=== PATIENT | male | born 1965 | race Hispanic/Latino ===

== ENCOUNTER → 2018-02-01 | Day surgery (SDC) | payer OTHER ==
[2018-01-30 18:10] LABS: BASOPHILS % 0.3 % (0.0-1.0); EOSINOPHILS # (AUTO) 0.1 (0.0-0.4); EOSINOPHILS % 0.8 % (0.0-6.0); HEMATOCRIT 37.5 % (38.2-49.6); HEMOGLOBIN 12.9 g/dL (14.0-18.0); LYMPHOCYTES # (AUTO) 3.2 (1.0-3.2); LYMPHOCYTES % 35.2 % (18.0-39.1); MEAN CORPUSCULAR HEMOGLOBIN 31.3 pg (28-32); MEAN CORPUSCULAR HGB CONC 34.4 g/dL (31-35); MONOCYTES # (AUTO) 0.8 (0.2-0.8); MONOCYTES % 9.2 % (4.4-11.3); NEUTROPHILS # (AUTO) 4.9 (2.1-6.9); NEUTROPHILS % 53.5 % (38.7-80.0); PLATELET COUNT 254 x10e3/uL (140-360); RED BLOOD COUNT 4.12 x10e6/uL (4.3-5.7); RED CELL DISTRIBUTION WIDTH 11.7 % (11.7-14.4)
[2018-01-30 18:34] LABS: ALANINE AMINOTRANSFERASE 27 IU/L (0-55); ALBUMIN 3.3 g/dL (3.5-5.0); ALBUMIN/GLOBULIN RATIO 1.1 (0.8-2.0); ALKALINE PHOSPHATASE 121 IU/L (40-150); ANION GAP 12.2 mmol/L (8-16); BLOOD UREA NITROGEN < 5 mg/dL (7-26); CALCIUM 8.6 mg/dL (8.4-10.2); CARBON DIOXIDE 25 mmol/L (22-29); CHLORIDE 95 mmol/L (98-107); CHOLESTEROL 91 MD/DL (0-199); CREATININE, SERUM 0.98 mg/dL (0.72-1.25); EST GLOMERULAR FILTRATION RATE > 60 ML/MIN (60-); GLUCOSE 281 mg/dL (74-118); HDL CHOLESTEROL 46 MG/DL (40-60); LDL CHOLESTEROL 30 MG/DL (60-130); POTASSIUM 4.2 mmol/L (3.5-5.1); SODIUM 128 mmol/L (136-145); TRIGLYCERIDES 75 MG/DL (0-149)
[2018-01-30 18:37] LABS: BUN/CREATININE RATIO 5 (6-25)
[~2018-02-01] VITALS: Ht 167.6 cm; Wt 64.0 kg
[2018-02-01] VITALS (12 sets, daily range): BP systolic 117–140; BP diastolic 70–90
[~2018-02-01] MED LIST: ASPIRIN81 MG PO; CIALIS20 MG PO; FENTANYL CITRATE/PF 100MCG/2 ML INJ ONE; FOLIC ACID1 MG PO; HEPARIN SOD (PORCINE) 1000 UNIT/ML 30ML ONE; HEPARIN SOD/SOD CHLORIDE 2,000 ML ONE; IOPAMIDOL 370 MG/ML 200 ML INFUS..BTL INJ ONE; LEVEMIR100 UNIT/1 SQ; LEVOTHYROXINE25 MCG PEG; LIDOCAINE HCL 2% LOCAL 20 ML VIAL ONE; LISINOPRIL10 MG PO; MIDAZOLAM HCL 2 MG/2 ML VIAL ONE; NITROGLYCERIN/D5W 200 MCG/ML 250 ML ONE; NOVOLOG MI100 UNIT/1 SQ; NOVOLOG100 UNIT/1 SQ; OMEGA-31000 MG PO; PANTOPRAZOLE SO40 MG PO; PRENATAL ONE T1 EACH; SODIUM CHLORIDE 0.9% 1000ML 1,000 ML ONE; VERAPAMIL HCL 2.5 MG/ML 2 ML VIAL ONE; VITAMIN B COMP1 EACH PO
--- OUTSIDE RECORDS SUMMARY | 2018-02-01 05:40 | XMS REPORT ---
[facility] Address Unknown Phone Unavailable Care Team Providers Care Residency Director Name Role Phone Brianne CHA PP Unavailable IVANA CHA M.D. Unavailable Unavailable GABRIELLA MIRANDA Unavailable Unavailable REJI MULLEN Unavailable Unavailable Problems This patient has no known problems. Allergies, Adverse Reactions, Alerts This patient has no known allergies or adverse reactions. Medications This patient has no known medications. Encounters Start Date/Time End Date/Time Encounter Type Admission Type Attending Clinicians Care Facility Care Department Encounter ID 2016-11-19 00:01:00 2016-11-19 00:01:00 Outpatient [facility] [id number] 2016-08-23 12:17:00 2016-08-23 12:17:00 Outpatient [facility] [id number] 2016-07-18 12:22:00 2016-07-18 12:22:00 Outpatient [facility] [id number] Results Test Description Test Time Test Comments Text Results Atomic Results Result Comments CT HEAD OR BRAIN WO CONTRAST 2016-11-03 14:26:24 CT HEAD WITHOUT CONTRASTLOCATION: [id number]: Head CT 08/23/2016INDICATION: [id number]: TRAUM SUBDR HEM W LOC OF 1-5 HRS 59 MIN, SUBS Technique: Noncontrast axial scans were obtained from skull base to the vertex. Coronal and sagittal reconstructions obtained from the axial data. Oneor more of the following dose reduction techniques were used: Automatedexposure control, adjustment of the mA and/or kV according to patientsize, and/or utilization of iterative reconstruction technique.DISCUSSION:Beam hardening artifacts obscure some details.Scalp/Skull:Right frontoparietal craniotomy changes are noted. Left parietal scalpscarring is noted.Brain sulci: Appropriate for patient's age.Ventricles: Normal in size and configuration. No hydrocephalus.Extra-axial spaces:Small 4 mm thick extradural hypodense collection underneath thecraniotomy has not significantly changed. There is no significant masseffect. No new masses or fluid collections.Parenchyma: Mild carotid siphon calcifications are present .Otherwise, no masses, acute intracranial hemorrhage or large vascularterritory acute infarct.Dural sinuses: No abnormal densities.Sellar/Suprasellar region: Intact.Skull base: Intact.IMPRESSION:1. Stable 4 mm thick hypodense collection underneath the rightfrontoparietal craniotomy has not significantly changed. No significantmass effect.2. Otherwise, no acute intracranial abnormalities. POC Glucose, Blood 2016-07-03 10:59:00 POC Glucose (test code=POCGLUC) 249 mg/dL 70-115 If you consider your patient critically ill, the Sammie Accu-Chek InformII metershould not be used for Glucose determinations.Draw a venous Glucose and send to the Main Lab for Analysis. Magnesium, [id number] 07:41:00* Test Item Value Reference Range Comments Magnesium (test code=MG) 1.8 mg/dL 1.7-2.5 [id number] 07:41:00* Test Item Value Reference Range Comments Phosphorus (test code=PO4) 3.8 mg/dL 2.70-4.50 Renal [id number] 06:48:00* Test Item Value Reference Range Comments Sodium (test code=NA) 131 mmol/L 135-145 Potassium (test code=K) 3.7 mmol/L 3.5-5.1 Chloride (test code=CL) 95 mmol/L 98-105 Carbon Dioxide (test code=CO2) 25 mmol/L 22-29 Glucose (test code=GLU) 149 mg/dL 70-115 Blood Urea Nitrogen (test code=BUN) 9 mg/dL 6-20 Creatinine (test code=CREAT) 0.6 mg/dL 0.7-1.2 Calcium (test code=CA) 8.3 mg/dL 8.3-10.5 Albumin (test code=ALB) 3.6 g/dL 3.5-5.2 Phosphorus (test code=PO4) 3.6 mg/dL 2.70-4.50 BUN/Creatinine Ratio (test code=BCRATIO) 15.0 Anion Gap (test code=AGAP) 11 mmol/L 7-16 Estimated GFR (test code=GFR) >60 mL/min/1.73m2 eGFR (estimated Glomerular Filtration Rate) is an estimated value,calculated from the patient's serum creatinine using the MDRD equation.It is NOT the patient's actual GFR. The eGFR provides a more clinicallyuseful measure of kidney disease than serum creatinine alone.This calculation takes sex and race into account, if the informationis provided. If the race is not provided, and the patient isAfrican-Honduran, multiply by 1.212. If sex is not provided, and thepatient is female, multiply by 0.742. Results for patients <18 years ofage have not been validated by the MDRD study and should be interpretedwith caution.eGFR Result Interpretation:eGFR > or=60 is in the Normal RangeeGFR < 60 may mean kidney diseaseeGFR < 15 may mean kidney failureRanges recommended by the National Kidney Foundat ion,http://nkdep.nih.gov CBC with [id number] 06:40:00* Test Item Value Reference Range Comments WBC (test code=WBC) 11.8 K/cumm 4.4-10.5 RBC (test code=RBC) 3.89 M/cumm 4.10-5.70 Hemoglobin (test code=HGB) 11.5 gm/dL 13.4-17.4 Hematocrit (test code=HCT) 35.2 % 38.7-52.0 MCV (test code=MCV) 90.5 fL 80-100 MCH (test code=MCH) 29.6 pg 27.0-32.5 MCHC (test code=MCHC) 32.7 g/dL 32.0-37.5 RDW (test code=RDW) 13.8 % 11.5-14.5 Platelet Count (test code=PLTCT) 492 K/cumm 140-440 MPV (test code=MPV) 7.3 fL Diff Method (test code=DIFFM) Auto Neutrophil (test code=NEUT) 52.1 % 36-70 Lymphocyte (test code=LYMPH) 34.7 % 12-44 Monocyte (test code=MONO) 11.5 % 0-11 Eosinophil (test code=EOS) 1.3 % 0-7 Basophil (test code=BASO) 0.4 % 0-2 Neutro Abs (test code=ANEUT) 6.1 K/cumm 1.6-7.4 Lymph Abs (test code=ALYMPH) 4.1 K/cumm 0.5-4.6 Davis Abs (test code=AMONO) 1.4 K/cumm 0.0-1.2 Eos Abs (test code=AEOS) 0.15 K/cumm 0.00-0.74 Baso Abs (test code=ABASO) 0.1 K/cumm 0.00-0.21 POC Glucose, [id number] 05:18:00* Test Item Value Reference Range Comments POC Glucose (test code=POCGLUC) 179 mg/dL 70-115 If you consider your patient critically ill, the Sammie Accu-Chek InformII metershould not be used for Glucose determinations.Draw a venous Glucose and send to the Main Lab for Analysis. POC Glucose, [id number] 20:52:00* Test Item Value Reference Range Comments POC Glucose (test code=POCGLUC) 170 mg/dL 70-115 If you consider your patient critically ill, the Sammie Accu-Chek InformII metershould not be used for Glucose determinations.Draw a venous Glucose and send to the Main Lab for Analysis. POC Glucose, [id number] 18:44:00* Test Item Value Reference Range Comments POC Glucose (test code=POCGLUC) 325 mg/dL 70-115 If you consider your patient critically ill, the Sammie Accu-Chek InformII metershould not be used for Glucose determinations.Draw a venous Glucose and send to the Main Lab for Analysis. POC Glucose, [id number] 16:29:00* Test Item Value Reference Range Comments POC Glucose (test code=POCGLUC) 156 mg/dL 70-115 If you consider your patient critically ill, the Sammie Accu-Chek InformII metershould not be used for Glucose determinations.Draw a venous Glucose and send to the Main Lab for Analysis. POC Glucose, [id number] 11:13:00* Test Item Value Reference Range Comments POC Glucose (test code=POCGLUC) 213 mg/dL 70-115 If you consider your patient critically ill, the Sammie Accu-Chek InformII metershould not be used for Glucose determinations.Draw a venous Glucose and send to the Main Lab for Analysis. CBC with [id number] 08:33:00* Test Item Value Reference Range Comments WBC (test code=WBC) 17.2 K/cumm 4.4-10.5 RBC (test code=RBC) 4.08 M/cumm 4.10-5.70 Hemoglobin (test code=HGB) 12.4 gm/dL 13.4-17.4 Hematocrit (test code=HCT) 36.7 % 38.7-52.0 MCV (test code=MCV) 89.9 fL 80-100 MCH (test code=MCH) 30.5 pg 27.0-32.5 MCHC (test code=MCHC) 33.9 g/dL 32.0-37.5 RDW (test code=RDW) 14.1 % 11.5-14.5 Platelet Count (test code=PLTCT) 575 K/cumm 140-440 MPV (test code=MPV) 7.3 fL Diff Method (test code=DIFFM) Auto Neutrophil (test code=NEUT) 59.1 % 36-70 Lymphocyte (test code=LYMPH) 29.5 % 12-44 Monocyte (test code=MONO) 10.3 % 0-11 Eosinophil (test code=EOS) 0.7 % 0-7 Basophil (test code=BASO) 0.3 % 0-2 Neutro Abs (test code=ANEUT) 10.2 K/cumm 1.6-7.4 Lymph Abs (test code=ALYMPH) 5.1 K/cumm 0.5-4.6 Davis Abs (test code=AMONO) 1.8 K/cumm 0.0-1.2 Eos Abs (test code=AEOS) 0.12 K/cumm 0.00-0.74 Baso Abs (test code=ABASO) 0.1 K/cumm 0.00-0.21 Prothrombin [id number] 08:33:00* Test Item Value Reference Range Comments PT (test code=PT) 12.00 seconds 9.78-13.35 INR (test code=INR) 1.05 Ratio 0.6-1.2 Partial Thromboplastin [id number] 08:33:00* Test Item Value Reference Range Comments aPTT (test code=PTT) 25.00 seconds 24.39-37.25 Renal [id number] 08:32:00* Test Item Value Reference Range Comments Sodium (test code=NA) 129 mmol/L 135-145 Potassium (test code=K) 3.7 mmol/L 3.5-5.1 Chloride (test code=CL) 89 mmol/L 98-105 Carbon Dioxide (test code=CO2) 24 mmol/L 22-29 Glucose (test code=GLU) 201 mg/dL 70-115 Blood Urea Nitrogen (test code=BUN) 11 mg/dL 6-20 Creatinine (test code=CREAT) 0.7 mg/dL 0.7-1.2 Calcium (test code=CA) 9.5 mg/dL 8.3-10.5 Albumin (test code=ALB) 4.5 g/dL 3.5-5.2 Phosphorus (test code=PO4) 3.5 mg/dL 2.70-4.50 BUN/Creatinine Ratio (test code=BCRATIO) 15.7 Anion Gap (test code=AGAP) 16 mmol/L 7-16 Estimated GFR (test code=GFR) >60 mL/min/1.73m2 eGFR (estimated Glomerular Filtration Rate) is an estimated value,calculated from the patient's serum creatinine using the MDRD equation.It is NOT the patient's actual GFR. The eGFR provides a more clinicallyuseful measure of kidney disease than serum creatinine alone.This calculation takes sex and race into account, if the informationis provided. If the race is not provided, and the patient isAfrican-Honduran, multiply by 1.212. If sex is not provided, and thepatient is female, multiply by 0.742. Results for patients <18 years ofage have not been validated by the MDRD study and should be interpretedwith caution.eGFR Result Interpretation:eGFR > or=60 is in the Normal RangeeGFR < 60 may mean kidney diseaseeGFR < 15 may mean kidney failureRanges recommended by the National Kidney Foundat ion,http://nkdep.nih.gov [id number] 08:26:00* Test Item Value Reference Range Comments Phosphorus (test code=PO4) 1.9 mg/dL 2.70-4.50 Magnesium, [id number] 08:26:00* Test Item Value Reference Range Comments Magnesium (test code=MG) 1.0 mg/dL 1.7-2.5 POC Glucose, [id number] 04:39:00* Test Item Value Reference Range Comments POC Glucose (test code=POCGLUC) 245 mg/dL 70-115 If you consider your patient critically ill, the Sammie Accu-Chek InformII metershould not be used for Glucose determinations.Draw a venous Glucose and send to the Main Lab for Analysis. POC Glucose, [id number] 18:58:00* Test Item Value Reference Range Comments POC Glucose (test code=POCGLUC) 421 mg/dL 70-115 Notify RN or MD POC Glucose, [id number] 15:49:00* Test Item Value Reference Range Comments POC Glucose (test code=POCGLUC) 246 mg/dL 70-115 If you consider your patient critically ill, the Sammie Accu-Chek InformII metershould not be used for Glucose determinations.Draw a venous Glucose and send to the Main Lab for Analysis. POC Glucose, [id number] 10:38:00* Test Item Value Reference Range Comments POC Glucose (test code=POCGLUC) 381 mg/dL 70-115 If you consider your patient critically ill, the Sammie Accu-Chek InformII metershould not be used for Glucose determinations.Draw a venous Glucose and send to the Main Lab for Analysis. [id number] 07:30:00* Test Item Value Reference Range Comments Phosphorus (test code=PO4) 4.5 mg/dL 2.70-4.50 Magnesium, [id number] 07:30:00* Test Item Value Reference Range Comments Magnesium (test code=MG) 1.8 mg/dL 1.7-2.5 Renal [id number] 07:23:00* Test Item Value Reference Range Comments Sodium (test code=NA) 129 mmol/L 135-145 Potassium (test code=K) 3.8 mmol/L 3.5-5.1 Chloride (test code=CL) 91 mmol/L 98-105 Carbon Dioxide (test code=CO2) 26 mmol/L 22-29 Glucose (test code=GLU) 155 mg/dL 70-115 Blood Urea Nitrogen (test code=BUN) 12 mg/dL 6-20 Creatinine (test code=CREAT) 0.7 mg/dL 0.7-1.2 Calcium (test code=CA) 9.8 mg/dL 8.3-10.5 Albumin (test code=ALB) 4.1 g/dL 3.5-5.2 Phosphorus (test code=PO4) 4.7 mg/dL 2.70-4.50 BUN/Creatinine Ratio (test code=BCRATIO) 17.1 Anion Gap (test code=AGAP) 12 mmol/L 7-16 Estimated GFR (test code=GFR) >60 mL/min/1.73m2 eGFR (estimated Glomerular Filtration Rate) is an estimated value,calculated from the patient's serum creatinine using the MDRD equation.It is NOT the patient's actual GFR. The eGFR provides a more clinicallyuseful measure of kidney disease than serum creatinine alone.This calculation takes sex and race into account, if the informationis provided. If the race is not provided, and the patient isAfrican-Honduran, multiply by 1.212. If sex is not provided, and thepatient is female, multiply by 0.742. Results for patients <18 years ofage have not been validated by the MDRD study and should be interpretedwith caution.eGFR Result Interpretation:eGFR > or=60 is in the Normal RangeeGFR < 60 may mean kidney diseaseeGFR < 15 may mean kidney failureRanges recommended by the National Kidney Foundat ion,http://nkdep.nih.gov Prothrombin [id number] 07:11:00* Test Item Value Reference Range Comments PT (test code=PT) 12.40 seconds 9.78-13.35 INR (test code=INR) 1.09 Ratio 0.6-1.2 Partial Thromboplastin [id number] 07:11:00* Test Item Value Reference Range Comments aPTT (test code=PTT) 24.50 seconds 24.39-37.25 CBC with [id number] 07:06:00* Test Item Value Reference Range Comments WBC (test code=WBC) 13.9 K/cumm 4.4-10.5 RBC (test code=RBC) 3.67 M/cumm 4.10-5.70 Hemoglobin (test code=HGB) 11.4 gm/dL 13.4-17.4 Hematocrit (test code=HCT) 32.5 % 38.7-52.0 MCV (test code=MCV) 88.5 fL 80-100 MCH (test code=MCH) 31.0 pg 27.0-32.5 MCHC (test code=MCHC) 35.0 g/dL 32.0-37.5 RDW (test code=RDW) 14.3 % 11.5-14.5 Platelet Count (test code=PLTCT) 509 K/cumm 140-440 MPV (test code=MPV) 8.8 fL Diff Method (test code=DIFFM) Auto Neutrophil (test code=NEUT) 77.3 % 36-70 Lymphocyte (test code=LYMPH) 16.0 % 12-44 Monocyte (test code=MONO) 6.4 % 0-11 Eosinophil (test code=EOS) 0.2 % 0-7 Basophil (test code=BASO) 0.1 % 0-2 Neutro Abs (test code=ANEUT) 10.7 K/cumm 1.6-7.4 Lymph Abs (test code=ALYMPH) 2.2 K/cumm 0.5-4.6 Davis Abs (test code=AMONO) 0.9 K/cumm 0.0-1.2 Eos Abs (test code=AEOS) 0.02 K/cumm 0.00-0.74 Baso Abs (test code=ABASO) 0.0 K/cumm 0.00-0.21 POC Glucose, [id number] 05:16:00* Test Item Value Reference Range Comments POC Glucose (test code=POCGLUC) 159 mg/dL 70-115 If you consider your patient critically ill, the Sammie Accu-Chek InformII metershould not be used for Glucose determinations.Draw a venous Glucose and send to the Main Lab for Analysis. POC Glucose, [id number] 20:35:00* Test Item Value Reference Range Comments POC Glucose (test code=POCGLUC) 235 mg/dL 70-115 If you consider your patient critically ill, the Sammie Accu-Chek InformII metershould not be used for Glucose determinations.Draw a venous Glucose and send to the Main Lab for Analysis. POC Glucose, [id number] 16:47:00* Test Item Value Reference Range Comments POC Glucose (test code=POCGLUC) 260 mg/dL 70-115 Notify RN or MDIf you consider your patient critically ill, the Sammie Accu-Chek InformII metershould not be used for Glucose determinations.Draw a venous Glucose and send to the Main Lab for Analysis. POC Glucose, [id number] 12:07:00* Test Item Value Reference Range Comments POC Glucose (test code=POCGLUC) 344 mg/dL 70-115 If you consider your patient critically ill, the Sammie Accu-Chek InformII metershould not be used for Glucose determinations.Draw a venous Glucose and send to the Main Lab for Analysis. [id number] 11:32:00* Test Item Value Reference Range Comments Aldosterone (test tyhr=459641) <1.0 ng/dL 0.0-30.0 This test was developed and its performance characteristicsdetermined by [employer]. It has not been cleared or approvedby the Food and Drug Administration. Magnesium, [id number] 07:21:00* Test Item Value Reference Range Comments Magnesium (test code=MG) 1.6 mg/dL 1.7-2.5 [id number] 07:21:00* Test Item Value Reference Range Comments Phosphorus (test code=PO4) 4.6 mg/dL 2.70-4.50 Renal [id number] 07:21:00* Test Item Value Reference Range Comments Sodium (test code=NA) 127 mmol/L 135-145 Potassium (test code=K) 3.9 mmol/L 3.5-5.1 Chloride (test code=CL) 88 mmol/L 98-105 Carbon Dioxide (test code=CO2) 24 mmol/L 22-29 Glucose (test code=GLU) 167 mg/dL 70-115 Blood Urea Nitrogen (test code=BUN) 12 mg/dL 6-20 Creatinine (test code=CREAT) 0.6 mg/dL 0.7-1.2 Calcium (test code=CA) 9.5 mg/dL 8.3-10.5 Albumin (test code=ALB) 4.2 g/dL 3.5-5.2 Phosphorus (test code=PO4) 4.6 mg/dL 2.70-4.50 BUN/Creatinine Ratio (test code=BCRATIO) 20.0 Anion Gap (test code=AGAP) 15 mmol/L 7-16 Estimated GFR (test code=GFR) >60 mL/min/1.73m2 eGFR (estimated Glomerular Filtration Rate) is an estimated value,calculated from the patient's serum creatinine using the MDRD equation.It is NOT the patient's actual GFR. The eGFR provides a more clinicallyuseful measure of kidney disease than serum creatinine alone.This calculation takes sex and race into account, if the informationis provided. If the race is not provided, and the patient isAfrican-Honduran, multiply by 1.212. If sex is not provided, and thepatient is female, multiply by 0.742. Results for patients <18 years ofage have not been validated by the MDRD study and should be interpretedwith caution.eGFR Result Interpretation:eGFR > or=60 is in the Normal RangeeGFR < 60 may mean kidney diseaseeGFR < 15 may mean kidney failureRanges recommended by the National Kidney Foundat ion,http://nkdep.nih.gov Partial Thromboplastin [id number] 07:18:00* Test Item Value Reference Range Comments aPTT (test code=PTT) 24.70 seconds 24.39-37.25 Prothrombin [id number] 07:18:00* Test Item Value Reference Range Comments PT (test code=PT) 12.40 seconds 9.78-13.35 INR (test code=INR) 1.09 Ratio 0.6-1.2 CBC with [id number] 07:01:00* Test Item Value Reference Range Comments WBC (test code=WBC) 14.5 K/cumm 4.4-10.5 RBC (test code=RBC) 3.54 M/cumm 4.10-5.70 Hemoglobin (test code=HGB) 10.8 gm/dL 13.4-17.4 Hematocrit (test code=HCT) 31.4 % 38.7-52.0 MCV (test code=MCV) 88.7 fL 80-100 MCH (test code=MCH) 30.6 pg 27.0-32.5 MCHC (test code=MCHC) 34.5 g/dL 32.0-37.5 RDW (test code=RDW) 13.4 % 11.5-14.5 Platelet Count (test code=PLTCT) 475 K/cumm 140-440 MPV (test code=MPV) 7.9 fL Diff Method (test code=DIFFM) Auto Neutrophil (test code=NEUT) 79.4 % 36-70 Lymphocyte (test code=LYMPH) 13.3 % 12-44 Monocyte (test code=MONO) 7.1 % 0-11 Eosinophil (test code=EOS) 0.1 % 0-7 Basophil (test code=BASO) 0.1 % 0-2 Neutro Abs (test code=ANEUT) 11.5 K/cumm 1.6-7.4 Lymph Abs (test code=ALYMPH) 1.9 K/cumm 0.5-4.6 Davis Abs (test code=AMONO) 1.0 K/cumm 0.0-1.2 Eos Abs (test code=AEOS) 0.02 K/cumm 0.00-0.74 Baso Abs (test code=ABASO) 0.0 K/cumm 0.00-0.21 POC Glucose, [id number] 04:33:00* Test Item Value Reference Range Comments POC Glucose (test code=POCGLUC) 163 mg/dL 70-115 If you consider your patient critically ill, the Sammie Accu-Chek InformII metershould not be used for Glucose determinations.Draw a venous Glucose and send to the Main Lab for Analysis. POC Glucose, [id number] 21:19:00* Test Item Value Reference Range Comments POC Glucose (test code=POCGLUC) 304 mg/dL 70-115 If you consider your patient critically ill, the Sammie Accu-Chek InformII metershould not be used for Glucose determinations.Draw a venous Glucose and send to the Main Lab for Analysis. POC Glucose, [id number] 17:36:00* Test Item Value Reference Range Comments POC Glucose (test code=POCGLUC) 320 mg/dL 70-115 Notify RN or MDIf you consider your patient critically ill, the Sammie Accu-Chek InformII metershould not be used for Glucose determinations.Draw a venous Glucose and send to the Main Lab for Analysis. Basic Metabolic [id number] 13:06:00* Test Item Value Reference Range Comments Sodium (test code=NA) 126 mmol/L 135-145 Potassium (test code=K) 4.7 mmol/L 3.5-5.1 Chloride (test code=CL) 88 mmol/L 98-105 Carbon Dioxide (test code=CO2) 24 mmol/L 22-29 Glucose (test code=GLU) 346 mg/dL 70-115 Blood Urea Nitrogen (test code=BUN) 12 mg/dL 6-20 Creatinine (test code=CREAT) 0.7 mg/dL 0.7-1.2 Calcium (test code=CA) 9.7 mg/dL 8.3-10.5 BUN/Creatinine Ratio (test code=BCRATIO) 17.1 Anion Gap (test code=AGAP) 14 mmol/L 7-16 Estimated GFR (test code=GFR) >60 mL/min/1.73m2 eGFR (estimated Glomerular Filtration Rate) is an estimated value,calculated from the patient's serum creatinine using the MDRD equation.It is NOT the patient's actual GFR. The eGFR provides a more clinicallyuseful measure of kidney disease than serum creatinine alone.This calculation takes sex and race into account, if the informationis provided. If the race is not provided, and the patient isAfrican-Honduran, multiply by 1.212. If sex is not provided, and thepatient is female, multiply by 0.742. Results for patients <18 years ofage have not been validated by the MDRD study and should be interpretedwith caution.eGFR Result Interpretation:eGFR > or=60 is in the Normal RangeeGFR < 60 may mean kidney diseaseeGFR < 15 may mean kidney failureRanges recommended by the National Kidney Foundat ion,http://nkdep.nih.gov POC Glucose, [id number] 12:40:00* Test Item Value Reference Range Comments POC Glucose (test code=POCGLUC) 360 mg/dL 70-115 Notify RN or MDIf you consider your patient critically ill, the Sammie Accu-Chek InformII metershould not be used for Glucose determinations.Draw a venous Glucose and send to the Main Lab for Analysis. POC Glucose, [id number] 12:40:00* Test Item Value Reference Range Comments POC Glucose (test code=POCGLUC) 341 mg/dL 70-115 Repeat TestNotify RN or MDIf you consider your patient critically ill, the Sammie Accu-Chek InformII metershould not be used for Glucose determinations.Draw a venous Glucose and send to the Main Lab for Analysis. POC Glucose, [id number] 08:03:00* Test Item Value Reference Range Comments POC Glucose (test code=POCGLUC) 223 mg/dL 70-115 Notify RN or MDIf you consider your patient critically ill, the Sammie Accu-Chek InformII metershould not be used for Glucose determinations.Draw a venous Glucose and send to the Main Lab for Analysis. Basic Metabolic [id number] 07:44:00* Test Item Value Reference Range Comments Sodium (test code=NA) 130 mmol/L 135-145 Potassium (test code=K) 3.5 mmol/L 3.5-5.1 Chloride (test code=CL) 93 mmol/L 98-105 Carbon Dioxide (test code=CO2) 25 mmol/L 22-29 Glucose (test code=GLU) 217 mg/dL 70-115 Blood Urea Nitrogen (test code=BUN) 11 mg/dL 6-20 Creatinine (test code=CREAT) 0.7 mg/dL 0.7-1.2 Calcium (test code=CA) 9.8 mg/dL 8.3-10.5 BUN/Creatinine Ratio (test code=BCRATIO) 15.7 Anion Gap (test code=AGAP) 12 mmol/L 7-16 Estimated GFR (test code=GFR) >60 mL/min/1.73m2 eGFR (estimated Glomerular Filtration Rate) is an estimated value,calculated from the patient's serum creatinine using the MDRD equation.It is NOT the patient's actual GFR. The eGFR provides a more clinicallyuseful measure of kidney disease than serum creatinine alone.This calculation takes sex and race into account, if the informationis provided. If the race is not provided, and the patient isAfrican-Honduran, multiply by 1.212. If sex is not provided, and thepatient is female, multiply by 0.742. Results for patients <18 years ofage have not been validated by the MDRD study and should be interpretedwith caution.eGFR Result Interpretation:eGFR > or=60 is in the Normal RangeeGFR < 60 may mean kidney diseaseeGFR < 15 may mean kidney failureRanges recommended by the National Kidney Foundat ion,http://nkdep.nih.gov CBC with [id number] 03:46:00* Test Item Value Reference Range Comments WBC (test code=WBC) 15.5 K/cumm 4.4-10.5 RBC (test code=RBC) 3.42 M/cumm 4.10-5.70 Hemoglobin (test code=HGB) 10.3 gm/dL 13.4-17.4 Hematocrit (test code=HCT) 31.4 % 38.7-52.0 MCV (test code=MCV) 91.8 fL 80-100 MCH (test code=MCH) 30.1 pg 27.0-32.5 MCHC (test code=MCHC) 32.8 g/dL 32.0-37.5 RDW (test code=RDW) 12.4 % 11.5-14.5 Platelet Count (test code=PLTCT) 441 K/cumm 140-440 MPV (test code=MPV) 7.5 fL Diff Method (test code=DIFFM) Auto Neutrophil (test code=NEUT) 82.1 % 36-70 Lymphocyte (test code=LYMPH) 10.5 % 12-44 Monocyte (test code=MONO) 7.0 % 0-11 Eosinophil (test code=EOS) 0.1 % 0-7 Basophil (test code=BASO) 0.3 % 0-2 Neutro Abs (test code=ANEUT) 12.7 K/cumm 1.6-7.4 Lymph Abs (test code=ALYMPH) 1.6 K/cumm 0.5-4.6 Davis Abs (test code=AMONO) 1.1 K/cumm 0.0-1.2 Eos Abs (test code=AEOS) 0.02 K/cumm 0.00-0.74 Baso Abs (test code=ABASO) 0.0 K/cumm 0.00-0.21 Prothrombin [id number] 03:45:00* Test Item Value Reference Range Comments PT (test code=PT) 12.00 seconds 9.78-13.35 INR (test code=INR) 1.05 Ratio 0.6-1.2 Partial Thromboplastin [id number] 03:45:00* Test Item Value Reference Range Comments aPTT (test code=PTT) 25.00 seconds 24.39-37.25 Basic Metabolic [id number] 03:25:00* Test Item Value Reference Range Comments Sodium (test code=NA) 135 mmol/L 135-145 Potassium (test code=K) 3.6 mmol/L 3.5-5.1 Chloride (test code=CL) 96 mmol/L 98-105 Carbon Dioxide (test code=CO2) 25 mmol/L 22-29 Glucose (test code=GLU) 118 mg/dL 70-115 Blood Urea Nitrogen (test code=BUN) 11 mg/dL 6-20 Creatinine (test code=CREAT) 0.6 mg/dL 0.7-1.2 Calcium (test code=CA) 9.4 mg/dL 8.3-10.5 BUN/Creatinine Ratio (test code=BCRATIO) 18.3 Anion Gap (test code=AGAP) 14 mmol/L 7-16 Estimated GFR (test code=GFR) >60 mL/min/1.73m2 eGFR (estimated Glomerular Filtration Rate) is an estimated value,calculated from the patient's serum creatinine using the MDRD equation.It is NOT the patient's actual GFR. The eGFR provides a more clinicallyuseful measure of kidney disease than serum creatinine alone.This calculation takes sex and race into account, if the informationis provided. If the race is not provided, and the patient isAfrican-Honduran, multiply by 1.212. If sex is not provided, and thepatient is female, multiply by 0.742. Results for patients <18 years ofage have not been validated by the MDRD study and should be interpretedwith caution.eGFR Result Interpretation:eGFR > or=60 is in the Normal RangeeGFR < 60 may mean kidney diseaseeGFR < 15 may mean kidney failureRanges recommended by the National Kidney Foundat ion,http://nkdep.nih.gov Renal [id number] 02:59:00* Test Item Value Reference Range Comments Sodium (test code=NA) 134 mmol/L 135-145 Potassium (test code=K) 3.5 mmol/L 3.5-5.1 Chloride (test code=CL) 96 mmol/L 98-105 Carbon Dioxide (test code=CO2) 25 mmol/L 22-29 Glucose (test code=GLU) 120 mg/dL 70-115 Blood Urea Nitrogen (test code=BUN) 11 mg/dL 6-20 Creatinine (test code=CREAT) 0.6 mg/dL 0.7-1.2 Calcium (test code=CA) 9.4 mg/dL 8.3-10.5 Albumin (test code=ALB) 4.0 g/dL 3.5-5.2 Phosphorus (test code=PO4) 4.3 mg/dL 2.70-4.50 BUN/Creatinine Ratio (test code=BCRATIO) 18.3 Anion Gap (test code=AGAP) 13 mmol/L 7-16 Estimated GFR (test code=GFR) >60 mL/min/1.73m2 eGFR (estimated Glomerular Filtration Rate) is an estimated value,calculated from the patient's serum creatinine using the MDRD equation.It is NOT the patient's actual GFR. The eGFR provides a more clinicallyuseful measure of kidney disease than serum creatinine alone.This calculation takes sex and race into account, if the informationis provided. If the race is not provided, and the patient isAfrican-Honduran, multiply by 1.212. If sex is not provided, and thepatient is female, multiply by 0.742. Results for patients <18 years ofage have not been validated by the MDRD study and should be interpretedwith caution.eGFR Result Interpretation:eGFR > or=60 is in the Normal RangeeGFR < 60 may mean kidney diseaseeGFR < 15 may mean kidney failureRanges recommended by the National Kidney Foundat ion,http://nkdep.nih.gov [id number] 02:57:00* Test Item Value Reference Range Comments Phosphorus (test code=PO4) 4.3 mg/dL 2.70-4.50 Magnesium, [id number] 02:57:00* Test Item Value Reference Range Comments Magnesium (test code=MG) 1.6 mg/dL 1.7-2.5 Basic Metabolic [id number] 22:08:00* Test Item Value Reference Range Comments Sodium (test code=NA) 130 mmol/L 135-145 Potassium (test code=K) 3.8 mmol/L 3.5-5.1 Chloride (test code=CL) 93 mmol/L 98-105 Carbon Dioxide (test code=CO2) 26 mmol/L 22-29 Glucose (test code=GLU) 324 mg/dL 70-115 Blood Urea Nitrogen (test code=BUN) 11 mg/dL 6-20 Creatinine (test code=CREAT) 0.7 mg/dL 0.7-1.2 Calcium (test code=CA) 9.9 mg/dL 8.3-10.5 BUN/Creatinine Ratio (test code=BCRATIO) 15.7 Anion Gap (test code=AGAP) 11 mmol/L 7-16 Estimated GFR (test code=GFR) >60 mL/min/1.73m2 eGFR (estimated Glomerular Filtration Rate) is an estimated value,calculated from the patient's serum creatinine using the MDRD equation.It is NOT the patient's actual GFR. The eGFR provides a more clinicallyuseful measure of kidney disease than serum creatinine alone.This calculation takes sex and race into account, if the informationis provided. If the race is not provided, and the patient isAfrican-Honduran, multiply by 1.212. If sex is not provided, and thepatient is female, multiply by 0.742. Results for patients <18 years ofage have not been validated by the MDRD study and should be interpretedwith caution.eGFR Result Interpretation:eGFR > or=60 is in the Normal RangeeGFR < 60 may mean kidney diseaseeGFR < 15 may mean kidney failureRanges recommended by the National Kidney Foundat ion,http://nkdep.nih.gov POC Glucose, [id number] 20:57:00* Test Item Value Reference Range Comments POC Glucose (test code=POCGLUC) 357 mg/dL 70-115 Notify RN or MDIf you consider your patient critically ill, the Sammie Accu-Chek InformII metershould not be used for Glucose determinations.Draw a venous Glucose and send to the Main Lab for Analysis. Basic Metabolic [id number] 19:06:00* Test Item Value Reference Range Comments Sodium (test code=NA) 132 mmol/L 135-145 Potassium (test code=K) 3.9 mmol/L 3.5-5.1 Chloride (test code=CL) 95 mmol/L 98-105 Carbon Dioxide (test code=CO2) 24 mmol/L 22-29 Glucose (test code=GLU) 301 mg/dL 70-115 Blood Urea Nitrogen (test code=BUN) 10 mg/dL 6-20 Creatinine (test code=CREAT) 0.7 mg/dL 0.7-1.2 Calcium (test code=CA) 9.7 mg/dL 8.3-10.5 BUN/Creatinine Ratio (test code=BCRATIO) 14.3 Anion Gap (test code=AGAP) 13 mmol/L 7-16 Estimated GFR (test code=GFR) >60 mL/min/1.73m2 eGFR (estimated Glomerular Filtration Rate) is an estimated value,calculated from the patient's serum creatinine using the MDRD equation.It is NOT the patient's actual GFR. The eGFR provides a more clinicallyuseful measure of kidney disease than serum creatinine alone.This calculation takes sex and race into account, if the informationis provided. If the race is not provided, and the patient isAfrican-Honduran, multiply by 1.212. If sex is not provided, and thepatient is female, multiply by 0.742. Results for patients <18 years ofage have not been validated by the MDRD study and should be interpretedwith caution.eGFR Result Interpretation:eGFR > or=60 is in the Normal RangeeGFR < 60 may mean kidney diseaseeGFR < 15 may mean kidney failureRanges recommended by the National Kidney Foundat ion,http://nkdep.nih.gov POC Glucose, [id number] 17:52:00* Test Item Value Reference Range Comments POC Glucose (test code=POCGLUC) 313 mg/dL 70-115 Notify RN or MDIf you consider your patient critically ill, the Sammie Accu-Chek InformII metershould not be used for Glucose determinations.Draw a venous Glucose and send to the Main Lab for Analysis. Basic Metabolic [id number] 14:34:00* Test Item Value Reference Range Comments Sodium (test code=NA) 129 mmol/L 135-145 Potassium (test code=K) 4.1 mmol/L 3.5-5.1 hemolyzed Chloride (test code=CL) 91 mmol/L 98-105 Carbon Dioxide (test code=CO2) 21 mmol/L 22-29 Glucose (test code=GLU) 277 mg/dL 70-115 Blood Urea Nitrogen (test code=BUN) 10 mg/dL 6-20 Creatinine (test code=CREAT) 0.6 mg/dL 0.7-1.2 Calcium (test code=CA) 9.1 mg/dL 8.3-10.5 BUN/Creatinine Ratio (test code=BCRATIO) 16.7 Anion Gap (test code=AGAP) 17 mmol/L 7-16 Estimated GFR (test code=GFR) >60 mL/min/1.73m2 eGFR (estimated Glomerular Filtration Rate) is an estimated value,calculated from the patient's serum creatinine using the MDRD equation.It is NOT the patient's actual GFR. The eGFR provides a more clinicallyuseful measure of kidney disease than serum creatinine alone.This calculation takes sex and race into account, if the informationis provided. If the race is not provided, and the patient isAfrican-Honduran, multiply by 1.212. If sex is not provided, and thepatient is female, multiply by 0.742. Results for patients <18 years ofage have not been validated by the MDRD study and should be interpretedwith caution.eGFR Result Interpretation:eGFR > or=60 is in the Normal RangeeGFR < 60 may mean kidney diseaseeGFR < 15 may mean kidney failureRanges recommended by the National Kidney Foundat ion,http://nkdep.nih.gov POC Glucose, [id number] 12:58:00* Test Item Value Reference Range Comments POC Glucose (test code=POCGLUC) 297 mg/dL 70-115 Notify RN or MDIf you consider your patient critically ill, the Sammie Accu-Chek InformII metershould not be used for Glucose determinations.Draw a venous Glucose and send to the Main Lab for Analysis. Basic Metabolic [id number] 10:12:00* Test Item Value Reference Range Comments Sodium (test code=NA) 132 mmol/L 135-145 Potassium (test code=K) 3.8 mmol/L 3.5-5.1 Chloride (test code=CL) 93 mmol/L 98-105 Carbon Dioxide (test code=CO2) 24 mmol/L 22-29 Glucose (test code=GLU) 265 mg/dL 70-115 Blood Urea Nitrogen (test code=BUN) 10 mg/dL 6-20 Creatinine (test code=CREAT) 0.6 mg/dL 0.7-1.2 Calcium (test code=CA) 9.0 mg/dL 8.3-10.5 BUN/Creatinine Ratio (test code=BCRATIO) 16.7 Anion Gap (test code=AGAP) 15 mmol/L 7-16 Estimated GFR (test code=GFR) >60 mL/min/1.73m2 eGFR (estimated Glomerular Filtration Rate) is an estimated value,calculated from the patient's serum creatinine using the MDRD equation.It is NOT the patient's actual GFR. The eGFR provides a more clinicallyuseful measure of kidney disease than serum creatinine alone.This calculation takes sex and race into account, if the informationis provided. If the race is not provided, and the patient isAfrican-Honduran, multiply by 1.212. If sex is not provided, and thepatient is female, multiply by 0.742. Results for patients <18 years ofage have not been validated by the MDRD study and should be interpretedwith caution.eGFR Result Interpretation:eGFR > or=60 is in the Normal RangeeGFR < 60 may mean kidney diseaseeGFR < 15 may mean kidney failureRanges recommended by the National Kidney Foundat ion,http://nkdep.nih.gov ACTH, [id number] 09:34:00* Test Item Value Reference Range Comments ACTH, Plasma (test wjpi=875311) 49.9 pg/mL 7.2-63.3 ACTH reference interval for samples collected between 7 and 10 AM. POC Glucose, [id number] 08:22:00* Test Item Value Reference Range Comments POC Glucose (test code=POCGLUC) 292 mg/dL 70-115 If you consider your patient critically ill, the Sammie Accu-Chek InformII metershould not be used for Glucose determinations.Draw a venous Glucose and send to the Main Lab for Analysis. Basic Metabolic [id number] 07:49:00* Test Item Value Reference Range Comments Sodium (test code=NA) 134 mmol/L 135-145 Potassium (test code=K) 4.1 mmol/L 3.5-5.1 Chloride (test code=CL) 94 mmol/L 98-105 Carbon Dioxide (test code=CO2) 22 mmol/L 22-29 Glucose (test code=GLU) 280 mg/dL 70-115 Blood Urea Nitrogen (test code=BUN) 10 mg/dL 6-20 Creatinine (test code=CREAT) 0.7 mg/dL 0.7-1.2 Calcium (test code=CA) 9.1 mg/dL 8.3-10.5 BUN/Creatinine Ratio (test code=BCRATIO) 14.3 Anion Gap (test code=AGAP) 18 mmol/L 7-16 Estimated GFR (test code=GFR) >60 mL/min/1.73m2 eGFR (estimated Glomerular Filtration Rate) is an estimated value,calculated from the patient's serum creatinine using the MDRD equation.It is NOT the patient's actual GFR. The eGFR provides a more clinicallyuseful measure of kidney disease than serum creatinine alone.This calculation takes sex and race into account, if the informationis provided. If the race is not provided, and the patient isAfrican-Honduran, multiply by 1.212. If sex is not provided, and thepatient is female, multiply by 0.742. Results for patients <18 years ofage have not been validated by the MDRD study and should be interpretedwith caution.eGFR Result Interpretation:eGFR > or=60 is in the Normal RangeeGFR < 60 may mean kidney diseaseeGFR < 15 may mean kidney failureRanges recommended by the National Kidney Foundat ion,http://nkdep.nih.gov Magnesium, [id number] 07:41:00* Test Item Value Reference Range Comments Magnesium (test code=MG) 1.7 mg/dL 1.7-2.5 [id number] 07:41:00* Test Item Value Reference Range Comments Phosphorus (test code=PO4) 3.7 mg/dL 2.70-4.50 CBC with [id number] 05:27:00* Test Item Value Reference Range Comments WBC (test code=WBC) 13.9 K/cumm 4.4-10.5 RBC (test code=RBC) 3.24 M/cumm 4.10-5.70 Hemoglobin (test code=HGB) 9.8 gm/dL 13.4-17.4 Hematocrit (test code=HCT) 29.6 % 38.7-52.0 MCV (test code=MCV) 91.3 fL 80-100 MCH (test code=MCH) 30.2 pg 27.0-32.5 MCHC (test code=MCHC) 33.1 g/dL 32.0-37.5 RDW (test code=RDW) 12.8 % 11.5-14.5 Platelet Count (test code=PLTCT) 458 K/cumm 140-440 MPV (test code=MPV) 6.8 fL Diff Method (test code=DIFFM) Manual Neutrophil (test code=NEUT) 87.0 % 36-70 Bands (test code=BAND) 1.0 % 0-6 Lymphocyte (test code=LYMPH) 7.0 % 12-44 Monocyte (test code=MONO) 5.0 % 0-11 Neutro Abs (test code=ANEUT) 12.2 K/cumm 1.6-7.4 Lymph Abs (test code=ALYMPH) 1.0 K/cumm 0.5-4.6 Davis Abs (test code=AMONO) 0.7 K/cumm 0.0-1.2 RBC Morphology (test code=RBCMRPH) Not Indicated Platelet Est (test code=PLTEST) Normal Platelet on Smear Renal [id number] 04:37:00* Test Item Value Reference Range Comments Sodium (test code=NA) 132 mmol/L 135-145 Potassium (test code=K) 4.0 mmol/L 3.5-5.1 Chloride (test code=CL) 95 mmol/L 98-105 Carbon Dioxide (test code=CO2) 24 mmol/L 22-29 Glucose (test code=GLU) 288 mg/dL 70-115 Blood Urea Nitrogen (test code=BUN) 9 mg/dL 6-20 Creatinine (test code=CREAT) 0.7 mg/dL 0.7-1.2 Calcium (test code=CA) 9.6 mg/dL 8.3-10.5 Albumin (test code=ALB) 3.8 g/dL 3.5-5.2 Phosphorus (test code=PO4) 3.7 mg/dL 2.70-4.50 BUN/Creatinine Ratio (test code=BCRATIO) 12.9 Anion Gap (test code=AGAP) 13 mmol/L 7-16 Estimated GFR (test code=GFR) >60 mL/min/1.73m2 eGFR (estimated Glomerular Filtration Rate) is an estimated value,calculated from the patient's serum creatinine using the MDRD equation.It is NOT the patient's actual GFR. The eGFR provides a more clinicallyuseful measure of kidney disease than serum creatinine alone.This calculation takes sex and race into account, if the informationis provided. If the race is not provided, and the patient isAfrican-Honduran, multiply by 1.212. If sex is not provided, and thepatient is female, multiply by 0.742. Results for patients <18 years ofage have not been validated by the MDRD study and should be interpretedwith caution.eGFR Result Interpretation:eGFR > or=60 is in the Normal RangeeGFR < 60 may mean kidney diseaseeGFR < 15 may mean kidney failureRanges recommended by the National Kidney Foundat ion,http://nkdep.nih.gov Prothrombin [id number] 04:24:00* Test Item Value Reference Range Comments PT (test code=PT) 11.70 seconds 9.78-13.35 INR (test code=INR) 1.03 Ratio 0.6-1.2 Partial Thromboplastin [id number] 04:24:00* Test Item Value Reference Range Comments aPTT (test code=PTT) 27.20 seconds 24.39-37.25 Basic Metabolic [id number] 23:56:00* Test Item Value Reference Range Comments Sodium (test code=NA) 130 mmol/L 135-145 Potassium (test code=K) 3.9 mmol/L 3.5-5.1 Chloride (test code=CL) 93 mmol/L 98-105 Carbon Dioxide (test code=CO2) 24 mmol/L 22-29 Glucose (test code=GLU) 324 mg/dL 70-115 Blood Urea Nitrogen (test code=BUN) 9 mg/dL 6-20 Creatinine (test code=CREAT) 0.7 mg/dL 0.7-1.2 Calcium (test code=CA) 9.0 mg/dL 8.3-10.5 BUN/Creatinine Ratio (test code=BCRATIO) 12.9 Anion Gap (test code=AGAP) 13 mmol/L 7-16 Estimated GFR (test code=GFR) >60 mL/min/1.73m2 eGFR (estimated Glomerular Filtration Rate) is an estimated value,calculated from the patient's serum creatinine using the MDRD equation.It is NOT the patient's actual GFR. The eGFR provides a more clinicallyuseful measure of kidney disease than serum creatinine alone.This calculation takes sex and race into account, if the informationis provided. If the race is not provided, and the patient isAfrican-Honduran, multiply by 1.212. If sex is not provided, and thepatient is female, multiply by 0.742. Results for patients <18 years ofage have not been validated by the MDRD study and should be interpretedwith caution.eGFR Result Interpretation:eGFR > or=60 is in the Normal RangeeGFR < 60 may mean kidney diseaseeGFR < 15 may mean kidney failureRanges recommended by the National Kidney Foundat ion,http://nkdep.nih.gov POC Glucose, [id number] 21:32:00* Test Item Value Reference Range Comments POC Glucose (test code=POCGLUC) 296 mg/dL 70-115 Notify RN or MDIf you consider your patient critically ill, the Sammie Accu-Chek InformII metershould not be used for Glucose determinations.Draw a venous Glucose and send to the Main Lab for Analysis. Basic Metabolic [id number] 17:31:00* Test Item Value Reference Range Comments Sodium (test code=NA) 131 mmol/L 135-145 Potassium (test code=K) 4.0 mmol/L 3.5-5.1 Chloride (test code=CL) 94 mmol/L 98-105 Carbon Dioxide (test code=CO2) 24 mmol/L 22-29 Glucose (test code=GLU) 250 mg/dL 70-115 Blood Urea Nitrogen (test code=BUN) 8 mg/dL 6-20 Creatinine (test code=CREAT) 0.7 mg/dL 0.7-1.2 Calcium (test code=CA) 9.5 mg/dL 8.3-10.5 BUN/Creatinine Ratio (test code=BCRATIO) 11.4 Anion Gap (test code=AGAP) 13 mmol/L 7-16 Estimated GFR (test code=GFR) >60 mL/min/1.73m2 eGFR (estimated Glomerular Filtration Rate) is an estimated value,calculated from the patient's serum creatinine using the MDRD equation.It is NOT the patient's actual GFR. The eGFR provides a more clinicallyuseful measure of kidney disease than serum creatinine alone.This calculation takes sex and race into account, if the informationis provided. If the race is not provided, and the patient isAfrican-Honduran, multiply by 1.212. If sex is not provided, and thepatient is female, multiply by 0.742. Results for patients <18 years ofage have not been validated by the MDRD study and should be interpretedwith caution.eGFR Result Interpretation:eGFR > or=60 is in the Normal RangeeGFR < 60 may mean kidney diseaseeGFR < 15 may mean kidney failureRanges recommended by the National Kidney Foundat ion,http://nkdep.nih.gov POC Glucose, [id number] 16:20:00* Test Item Value Reference Range Comments POC Glucose (test code=POCGLUC) 255 mg/dL 70-115 If you consider your patient critically ill, the Sammie Accu-Chek InformII metershould not be used for Glucose determinations.Draw a venous Glucose and send to the Main Lab for Analysis. Basic Metabolic [id number] 13:14:00* Test Item Value Reference Range Comments Sodium (test code=NA) 127 mmol/L 135-145 Potassium (test code=K) 4.0 mmol/L 3.5-5.1 Chloride (test code=CL) 91 mmol/L 98-105 Carbon Dioxide (test code=CO2) 23 mmol/L 22-29 Glucose (test code=GLU) 288 mg/dL 70-115 Blood Urea Nitrogen (test code=BUN) 10 mg/dL 6-20 Creatinine (test code=CREAT) 0.7 mg/dL 0.7-1.2 Calcium (test code=CA) 9.2 mg/dL 8.3-10.5 BUN/Creatinine Ratio (test code=BCRATIO) 14.3 Anion Gap (test code=AGAP) 13 mmol/L 7-16 Estimated GFR (test code=GFR) >60 mL/min/1.73m2 eGFR (estimated Glomerular Filtration Rate) is an estimated value,calculated from the patient's serum creatinine using the MDRD equation.It is NOT the patient's actual GFR. The eGFR provides a more clinicallyuseful measure of kidney disease than serum creatinine alone.This calculation takes sex and race into account, if the informationis provided. If the race is not provided, and the patient isAfrican-Honduran, multiply by 1.212. If sex is not provided, and thepatient is female, multiply by 0.742. Results for patients <18 years ofage have not been validated by the MDRD study and should be interpretedwith caution.eGFR Result Interpretation:eGFR > or=60 is in the Normal RangeeGFR < 60 may mean kidney diseaseeGFR < 15 may mean kidney failureRanges recommended by the National Kidney Foundat ion,http://nkdep.nih.gov POC Glucose, [id number] 12:19:00* Test Item Value Reference Range Comments POC Glucose (test code=POCGLUC) 300 mg/dL 70-115 If you consider your patient critically ill, the Sammie Accu-Chek InformII metershould not be used for Glucose determinations.Draw a venous Glucose and send to the Main Lab for Analysis. Basic Metabolic [id number] 09:12:00* Test Item Value Reference Range Comments Sodium (test code=NA) 127 mmol/L 135-145 Potassium (test code=K) 3.7 mmol/L 3.5-5.1 Chloride (test code=CL) 92 mmol/L 98-105 Carbon Dioxide (test code=CO2) 21 mmol/L 22-29 Glucose (test code=GLU) 265 mg/dL 70-115 Blood Urea Nitrogen (test code=BUN) 10 mg/dL 6-20 Creatinine (test code=CREAT) 0.7 mg/dL 0.7-1.2 Calcium (test code=CA) 8.9 mg/dL 8.3-10.5 BUN/Creatinine Ratio (test code=BCRATIO) 14.3 Anion Gap (test code=AGAP) 14 mmol/L 7-16 Estimated GFR (test code=GFR) >60 mL/min/1.73m2 eGFR (estimated Glomerular Filtration Rate) is an estimated value,calculated from the patient's serum creatinine using the MDRD equation.It is NOT the patient's actual GFR. The eGFR provides a more clinicallyuseful measure of kidney disease than serum creatinine alone.This calculation takes sex and race into account, if the informationis provided. If the race is not provided, and the patient isAfrican-Honduran, multiply by 1.212. If sex is not provided, and thepatient is female, multiply by 0.742. Results for patients <18 years ofage have not been validated by the MDRD study and should be interpretedwith caution.eGFR Result Interpretation:eGFR > or=60 is in the Normal RangeeGFR < 60 may mean kidney diseaseeGFR < 15 may mean kidney failureRanges recommended by the National Kidney Foundat ion,http://nkdep.nih.gov POC Glucose, [id number] 08:59:00* Test Item Value Reference Range Comments POC Glucose (test code=POCGLUC) 264 mg/dL 70-115 If you consider your patient critically ill, the Sammie Accu-Chek InformII metershould not be used for Glucose determinations.Draw a venous Glucose and send to the Main Lab for Analysis. Magnesium, [id number] 06:31:00* Test Item Value Reference Range Comments Magnesium (test code=MG) 1.6 mg/dL 1.7-2.5 [id number] 06:31:00* Test Item Value Reference Range Comments Phosphorus (test code=PO4) 3.6 mg/dL 2.70-4.50 Basic Metabolic [id number] 04:20:00* Test Item Value Reference Range Comments Sodium (test code=NA) 126 mmol/L 135-145 Potassium (test code=K) 4.3 mmol/L 3.5-5.1 Chloride (test code=CL) 90 mmol/L 98-105 Carbon Dioxide (test code=CO2) 21 mmol/L 22-29 Glucose (test code=GLU) 289 mg/dL 70-115 Blood Urea Nitrogen (test code=BUN) 10 mg/dL 6-20 Creatinine (test code=CREAT) 0.8 mg/dL 0.7-1.2 Calcium (test code=CA) 9.0 mg/dL 8.3-10.5 BUN/Creatinine Ratio (test code=BCRATIO) 12.5 Anion Gap (test code=AGAP) 15 mmol/L 7-16 Estimated GFR (test code=GFR) >60 mL/min/1.73m2 eGFR (estimated Glomerular Filtration Rate) is an estimated value,calculated from the patient's serum creatinine using the MDRD equation.It is NOT the patient's actual GFR. The eGFR provides a more clinicallyuseful measure of kidney disease than serum creatinine alone.This calculation takes sex and race into account, if the informationis provided. If the race is not provided, and the patient isAfrican-Honduran, multiply by 1.212. If sex is not provided, and thepatient is female, multiply by 0.742. Results for patients <18 years ofage have not been validated by the MDRD study and should be interpretedwith caution.eGFR Result Interpretation:eGFR > or=60 is in the Normal RangeeGFR < 60 may mean kidney diseaseeGFR < 15 may mean kidney failureRanges recommended by the National Kidney Foundat ion,http://nkdep.nih.gov Renal [id number] 04:08:00* Test Item Value Reference Range Comments Sodium (test code=NA) 124 mmol/L 135-145 Potassium (test code=K) 4.3 mmol/L 3.5-5.1 Chloride (test code=CL) 88 mmol/L 98-105 Carbon Dioxide (test code=CO2) 21 mmol/L 22-29 Glucose (test code=GLU) 292 mg/dL 70-115 Blood Urea Nitrogen (test code=BUN) 10 mg/dL 6-20 Creatinine (test code=CREAT) 0.8 mg/dL 0.7-1.2 Calcium (test code=CA) 9.0 mg/dL 8.3-10.5 Albumin (test code=ALB) 4.0 g/dL 3.5-5.2 Phosphorus (test code=PO4) 3.3 mg/dL 2.70-4.50 BUN/Creatinine Ratio (test code=BCRATIO) 12.5 Anion Gap (test code=AGAP) 15 mmol/L 7-16 Estimated GFR (test code=GFR) >60 mL/min/1.73m2 eGFR (estimated Glomerular Filtration Rate) is an estimated value,calculated from the patient's serum creatinine using the MDRD equation.It is NOT the patient's actual GFR. The eGFR provides a more clinicallyuseful measure of kidney disease than serum creatinine alone.This calculation takes sex and race into account, if the informationis provided. If the race is not provided, and the patient isAfrican-Honduran, multiply by 1.212. If sex is not provided, and thepatient is female, multiply by 0.742. Results for patients <18 years ofage have not been validated by the MDRD study and should be interpretedwith caution.eGFR Result Interpretation:eGFR > or=60 is in the Normal RangeeGFR < 60 may mean kidney diseaseeGFR < 15 may mean kidney failureRanges recommended by the National Kidney Foundat ion,http://nkdep.nih.gov Partial Thromboplastin [id number] 04:03:00* Test Item Value Reference Range Comments aPTT (test code=PTT) 28.00 seconds 24.39-37.25 Prothrombin [id number] 04:03:00* Test Item Value Reference Range Comments PT (test code=PT) 12.80 seconds 9.78-13.35 INR (test code=INR) 1.12 Ratio 0.6-1.2 CBC with [id number] 03:57:00* Test Item Value Reference Range Comments WBC (test code=WBC) 15.5 K/cumm 4.4-10.5 RBC (test code=RBC) 3.31 M/cumm 4.10-5.70 Hemoglobin (test code=HGB) 10.0 gm/dL 13.4-17.4 Hematocrit (test code=HCT) 29.9 % 38.7-52.0 MCV (test code=MCV) 90.5 fL 80-100 MCH (test code=MCH) 30.4 pg 27.0-32.5 MCHC (test code=MCHC) 33.5 g/dL 32.0-37.5 RDW (test code=RDW) 12.8 % 11.5-14.5 Platelet Count (test code=PLTCT) 463 K/cumm 140-440 MPV (test code=MPV) 7.0 fL Diff Method (test code=DIFFM) Auto Neutrophil (test code=NEUT) 87.6 % 36-70 Lymphocyte (test code=LYMPH) 6.6 % 12-44 Monocyte (test code=MONO) 5.6 % 0-11 Eosinophil (test code=EOS) 0.2 % 0-7 Basophil (test code=BASO) 0.1 % 0-2 Neutro Abs (test code=ANEUT) 13.6 K/cumm 1.6-7.4 Lymph Abs (test code=ALYMPH) 1.0 K/cumm 0.5-4.6 Davis Abs (test code=AMONO) 0.9 K/cumm 0.0-1.2 Eos Abs (test code=AEOS) 0.03 K/cumm 0.00-0.74 Baso Abs (test code=ABASO) 0.0 K/cumm 0.00-0.21 Basic Metabolic [id number] 22:45:00* Test Item Value Reference Range Comments Sodium (test code=NA) 126 mmol/L 135-145 Potassium (test code=K) 4.5 mmol/L 3.5-5.1 Chloride (test code=CL) 88 mmol/L 98-105 Carbon Dioxide (test code=CO2) 21 mmol/L 22-29 Glucose (test code=GLU) 317 mg/dL 70-115 Blood Urea Nitrogen (test code=BUN) 10 mg/dL 6-20 Creatinine (test code=CREAT) 0.9 mg/dL 0.7-1.2 Calcium (test code=CA) 10.0 mg/dL 8.3-10.5 BUN/Creatinine Ratio (test code=BCRATIO) 11.1 Anion Gap (test code=AGAP) 17 mmol/L 7-16 Estimated GFR (test code=GFR) >60 mL/min/1.73m2 eGFR (estimated Glomerular Filtration Rate) is an estimated value,calculated from the patient's serum creatinine using the MDRD equation.It is NOT the patient's actual GFR. The eGFR provides a more clinicallyuseful measure of kidney disease than serum creatinine alone.This calculation takes sex and race into account, if the informationis provided. If the race is not provided, and the patient isAfrican-Honduran, multiply by 1.212. If sex is not provided, and thepatient is female, multiply by 0.742. Results for patients <18 years ofage have not been validated by the MDRD study and should be interpretedwith caution.eGFR Result Interpretation:eGFR > or=60 is in the Normal RangeeGFR < 60 may mean kidney diseaseeGFR < 15 may mean kidney failureRanges recommended by the National Kidney Foundat ion,http://nkdep.nih.gov POC Glucose, [id number] 20:25:00* Test Item Value Reference Range Comments POC Glucose (test code=POCGLUC) 348 mg/dL 70-115 Notify RN or MDIf you consider your patient critically ill, the Sammie Accu-Chek InformII metershould not be used for Glucose determinations.Draw a venous Glucose and send to the Main Lab for Analysis. Basic Metabolic [id number] 17:02:00* Test Item Value Reference Range Comments Sodium (test code=NA) 129 mmol/L 135-145 Potassium (test code=K) 4.1 mmol/L 3.5-5.1 Chloride (test code=CL) 91 mmol/L 98-105 Carbon Dioxide (test code=CO2) 23 mmol/L 22-29 Glucose (test code=GLU) 257 mg/dL 70-115 Blood Urea Nitrogen (test code=BUN) 10 mg/dL 6-20 Creatinine (test code=CREAT) 0.8 mg/dL 0.7-1.2 Calcium (test code=CA) 9.7 mg/dL 8.3-10.5 BUN/Creatinine Ratio (test code=BCRATIO) 12.5 Anion Gap (test code=AGAP) 15 mmol/L 7-16 Estimated GFR (test code=GFR) >60 mL/min/1.73m2 eGFR (estimated Glomerular Filtration Rate) is an estimated value,calculated from the patient's serum creatinine using the MDRD equation.It is NOT the patient's actual GFR. The eGFR provides a more clinicallyuseful measure of kidney disease than serum creatinine alone.This calculation takes sex and race into account, if the informationis provided. If the race is not provided, and the patient isAfrican-Honduran, multiply by 1.212. If sex is not provided, and thepatient is female, multiply by 0.742. Results for patients <18 years ofage have not been validated by the MDRD study and should be interpretedwith caution.eGFR Result Interpretation:eGFR > or=60 is in the Normal RangeeGFR < 60 may mean kidney diseaseeGFR < 15 may mean kidney failureRanges recommended by the National Kidney Foundat ion,http://nkdep.nih.gov Basic Metabolic [id number] 12:02:00* Test Item Value Reference Range Comments Sodium (test code=NA) 130 mmol/L 135-145 Potassium (test code=K) 4.2 mmol/L 3.5-5.1 Chloride (test code=CL) 93 mmol/L 98-105 Carbon Dioxide (test code=CO2) 24 mmol/L 22-29 Glucose (test code=GLU) 193 mg/dL 70-115 Blood Urea Nitrogen (test code=BUN) 10 mg/dL 6-20 Creatinine (test code=CREAT) 0.8 mg/dL 0.7-1.2 Calcium (test code=CA) 8.8 mg/dL 8.3-10.5 BUN/Creatinine Ratio (test code=BCRATIO) 12.5 Anion Gap (test code=AGAP) 13 mmol/L 7-16 Estimated GFR (test code=GFR) >60 mL/min/1.73m2 eGFR (estimated Glomerular Filtration Rate) is an estimated value,calculated from the patient's serum creatinine using the MDRD equation.It is NOT the patient's actual GFR. The eGFR provides a more clinicallyuseful measure of kidney disease than serum creatinine alone.This calculation takes sex and race into account, if the informationis provided. If the race is not provided, and the patient isAfrican-Honduran, multiply by 1.212. If sex is not provided, and thepatient is female, multiply by 0.742. Results for patients <18 years ofage have not been validated by the MDRD study and should be interpretedwith caution.eGFR Result Interpretation:eGFR > or=60 is in the Normal RangeeGFR < 60 may mean kidney diseaseeGFR < 15 may mean kidney failureRanges recommended by the National Kidney Foundat ion,http://nkdep.nih.gov Renal [id number] 04:07:00* Test Item Value Reference Range Comments Sodium (test code=NA) 132 mmol/L 135-145 Potassium (test code=K) 3.7 mmol/L 3.5-5.1 Chloride (test code=CL) 94 mmol/L 98-105 Carbon Dioxide (test code=CO2) 25 mmol/L 22-29 Glucose (test code=GLU) 86 mg/dL 70-115 Blood Urea Nitrogen (test code=BUN) 10 mg/dL 6-20 Creatinine (test code=CREAT) 0.8 mg/dL 0.7-1.2 Calcium (test code=CA) 9.4 mg/dL 8.3-10.5 Albumin (test code=ALB) 4.5 g/dL 3.5-5.2 Phosphorus (test code=PO4) 4.6 mg/dL 2.70-4.50 BUN/Creatinine Ratio (test code=BCRATIO) 12.5 Anion Gap (test code=AGAP) 13 mmol/L 7-16 Estimated GFR (test code=GFR) >60 mL/min/1.73m2 eGFR (estimated Glomerular Filtration Rate) is an estimated value,calculated from the patient's serum creatinine using the MDRD equation.It is NOT the patient's actual GFR. The eGFR provides a more clinicallyuseful measure of kidney disease than serum creatinine alone.This calculation takes sex and race into account, if the informationis provided. If the race is not provided, and the patient isAfrican-Honduran, multiply by 1.212. If sex is not provided, and thepatient is female, multiply by 0.742. Results for patients <18 years ofage have not been validated by the MDRD study and should be interpretedwith caution.eGFR Result Interpretation:eGFR > or=60 is in the Normal RangeeGFR < 60 may mean kidney diseaseeGFR < 15 may mean kidney failureRanges recommended by the National Kidney Foundat ion,http://nkdep.nih.gov Basic Metabolic [id number] 04:07:00* Test Item Value Reference Range Comments Sodium (test code=NA) 135 mmol/L 135-145 Potassium (test code=K) 3.7 mmol/L 3.5-5.1 Chloride (test code=CL) 96 mmol/L 98-105 Carbon Dioxide (test code=CO2) 25 mmol/L 22-29 Glucose (test code=GLU) 87 mg/dL 70-115 Blood Urea Nitrogen (test code=BUN) 9 mg/dL 6-20 Creatinine (test code=CREAT) 0.8 mg/dL 0.7-1.2 Calcium (test code=CA) 9.5 mg/dL 8.3-10.5 BUN/Creatinine Ratio (test code=BCRATIO) 11.3 Anion Gap (test code=AGAP) 14 mmol/L 7-16 Estimated GFR (test code=GFR) >60 mL/min/1.73m2 eGFR (estimated Glomerular Filtration Rate) is an estimated value,calculated from the patient's serum creatinine using the MDRD equation.It is NOT the patient's actual GFR. The eGFR provides a more clinicallyuseful measure of kidney disease than serum creatinine alone.This calculation takes sex and race into account, if the informationis provided. If the race is not provided, and the patient isAfrican-Honduran, multiply by 1.212. If sex is not provided, and thepatient is female, multiply by 0.742. Results for patients <18 years ofage have not been validated by the MDRD study and should be interpretedwith caution.eGFR Result Interpretation:eGFR > or=60 is in the Normal RangeeGFR < 60 may mean kidney diseaseeGFR < 15 may mean kidney failureRanges recommended by the National Kidney Foundat ion,http://nkdep.nih.gov Magnesium, [id number] 04:07:00* Test Item Value Reference Range Comments Magnesium (test code=MG) 1.8 mg/dL 1.7-2.5 [id number] 04:07:00* Test Item Value Reference Range Comments Phosphorus (test code=PO4) 4.7 mg/dL 2.70-4.50 Prothrombin [id number] 04:05:00* Test Item Value Reference Range Comments PT (test code=PT) 12.50 seconds 9.78-13.35 INR (test code=INR) 1.10 Ratio 0.6-1.2 Partial Thromboplastin [id number] 04:05:00* Test Item Value Reference Range Comments aPTT (test code=PTT) 27.10 seconds 24.39-37.25 CBC with [id number] 04:01:00* Test Item Value Reference Range Comments WBC (test code=WBC) 10.9 K/cumm 4.4-10.5 RBC (test code=RBC) 3.66 M/cumm 4.10-5.70 Hemoglobin (test code=HGB) 11.3 gm/dL 13.4-17.4 Hematocrit (test code=HCT) 33.4 % 38.7-52.0 MCV (test code=MCV) 91.1 fL 80-100 MCH (test code=MCH) 30.9 pg 27.0-32.5 MCHC (test code=MCHC) 34.0 g/dL 32.0-37.5 RDW (test code=RDW) 13.2 % 11.5-14.5 Platelet Count (test code=PLTCT) 491 K/cumm 140-440 MPV (test code=MPV) 7.1 fL Diff Method (test code=DIFFM) Auto Neutrophil (test code=NEUT) 70.8 % 36-70 Lymphocyte (test code=LYMPH) 18.2 % 12-44 Monocyte (test code=MONO) 9.5 % 0-11 Eosinophil (test code=EOS) 1.2 % 0-7 Basophil (test code=BASO) 0.3 % 0-2 Neutro Abs (test code=ANEUT) 7.7 K/cumm 1.6-7.4 Lymph Abs (test code=ALYMPH) 2.0 K/cumm 0.5-4.6 Davis Abs (test code=AMONO) 1.0 K/cumm 0.0-1.2 Eos Abs (test code=AEOS) 0.13 K/cumm 0.00-0.74 Baso Abs (test code=ABASO) 0.0 K/cumm 0.00-0.21 Basic Metabolic [id number] 23:40:00* Test Item Value Reference Range Comments Sodium (test code=NA) 126 mmol/L 135-145 Potassium (test code=K) 4.1 mmol/L 3.5-5.1 Chloride (test code=CL) 90 mmol/L 98-105 Carbon Dioxide (test code=CO2) 23 mmol/L 22-29 Glucose (test code=GLU) 282 mg/dL 70-115 Blood Urea Nitrogen (test code=BUN) 10 mg/dL 6-20 Creatinine (test code=CREAT) 0.8 mg/dL 0.7-1.2 Calcium (test code=CA) 9.1 mg/dL 8.3-10.5 BUN/Creatinine Ratio (test code=BCRATIO) 12.5 Anion Gap (test code=AGAP) 13 mmol/L 7-16 Estimated GFR (test code=GFR) >60 mL/min/1.73m2 eGFR (estimated Glomerular Filtration Rate) is an estimated value,calculated from the patient's serum creatinine using the MDRD equation.It is NOT the patient's actual GFR. The eGFR provides a more clinicallyuseful measure of kidney disease than serum creatinine alone.This calculation takes sex and race into account, if the informationis provided. If the race is not provided, and the patient isAfrican-Honduran, multiply by 1.212. If sex is not provided, and thepatient is female, multiply by 0.742. Results for patients <18 years ofage have not been validated by the MDRD study and should be interpretedwith caution.eGFR Result Interpretation:eGFR > or=60 is in the Normal RangeeGFR < 60 may mean kidney diseaseeGFR < 15 may mean kidney failureRanges recommended by the National Kidney Foundat ion,http://nkdep.nih.gov POC Glucose, [id number] 22:03:00* Test Item Value Reference Range Comments POC Glucose (test code=POCGLUC) 330 mg/dL 70-115 If you consider your patient critically ill, the Sammie Accu-Chek InformII metershould not be used for Glucose determinations.Draw a venous Glucose and send to the Main Lab for Analysis. POC Glucose, [id number] 18:02:00* Test Item Value Reference Range Comments POC Glucose (test code=POCGLUC) 73 mg/dL 70-115 If you consider your patient critically ill, the Sammie Accu-Chek InformII metershould not be used for Glucose determinations.Draw a venous Glucose and send to the Main Lab for Analysis. Basic Metabolic [id number] 16:41:00* Test Item Value Reference Range Comments Sodium (test code=NA) 132 mmol/L 135-145 Potassium (test code=K) 4.0 mmol/L 3.5-5.1 Chloride (test code=CL) 96 mmol/L 98-105 Carbon Dioxide (test code=CO2) 26 mmol/L 22-29 Glucose (test code=GLU) 175 mg/dL 70-115 Blood Urea Nitrogen (test code=BUN) 9 mg/dL 6-20 Creatinine (test code=CREAT) 0.8 mg/dL 0.7-1.2 Calcium (test code=CA) 10.1 mg/dL 8.3-10.5 BUN/Creatinine Ratio (test code=BCRATIO) 11.3 Anion Gap (test code=AGAP) 10 mmol/L 7-16 Estimated GFR (test code=GFR) >60 mL/min/1.73m2 eGFR (estimated Glomerular Filtration Rate) is an estimated value,calculated from the patient's serum creatinine using the MDRD equation.It is NOT the patient's actual GFR. The eGFR provides a more clinicallyuseful measure of kidney disease than serum creatinine alone.This calculation takes sex and race into account, if the informationis provided. If the race is not provided, and the patient isAfrican-Honduran, multiply by 1.212. If sex is not provided, and thepatient is female, multiply by 0.742. Results for patients <18 years ofage have not been validated by the MDRD study and should be interpretedwith caution.eGFR Result Interpretation:eGFR > or=60 is in the Normal RangeeGFR < 60 may mean kidney diseaseeGFR < 15 may mean kidney failureRanges recommended by the National Kidney Foundat ion,http://nkdep.nih.gov POC Glucose, [id number] 12:51:00* Test Item Value Reference Range Comments POC Glucose (test code=POCGLUC) 255 mg/dL 70-115 If you consider your patient critically ill, the Sammie Accu-Chek InformII metershould not be used for Glucose determinations.Draw a venous Glucose and send to the Main Lab for Analysis. Basic Metabolic [id number] 10:43:00* Test Item Value Reference Range Comments Sodium (test code=NA) 127 mmol/L 135-145 Potassium (test code=K) 4.2 mmol/L 3.5-5.1 Chloride (test code=CL) 89 mmol/L 98-105 Carbon Dioxide (test code=CO2) 24 mmol/L 22-29 Glucose (test code=GLU) 232 mg/dL 70-115 Blood Urea Nitrogen (test code=BUN) 12 mg/dL 6-20 Creatinine (test code=CREAT) 0.8 mg/dL 0.7-1.2 Calcium (test code=CA) 9.6 mg/dL 8.3-10.5 BUN/Creatinine Ratio (test code=BCRATIO) 15.0 Anion Gap (test code=AGAP) 14 mmol/L 7-16 Estimated GFR (test code=GFR) >60 mL/min/1.73m2 eGFR (estimated Glomerular Filtration Rate) is an estimated value,calculated from the patient's serum creatinine using the MDRD equation.It is NOT the patient's actual GFR. The eGFR provides a more clinicallyuseful measure of kidney disease than serum creatinine alone.This calculation takes sex and race into account, if the informationis provided. If the race is not provided, and the patient isAfrican-Honduran, multiply by 1.212. If sex is not provided, and thepatient is female, multiply by 0.742. Results for patients <18 years ofage have not been validated by the MDRD study and should be interpretedwith caution.eGFR Result Interpretation:eGFR > or=60 is in the Normal RangeeGFR < 60 may mean kidney diseaseeGFR < 15 may mean kidney failureRanges recommended by the National Kidney Foundat ion,http://nkdep.nih.gov POC Glucose, [id number] 09:08:00* Test Item Value Reference Range Comments POC Glucose (test code=POCGLUC) 239 mg/dL 70-115 If you consider your patient critically ill, the Sammie Accu-Chek InformII metershould not be used for Glucose determinations.Draw a venous Glucose and send to the Main Lab for Analysis. [id number] 08:12:00* Test Item Value Reference Range Comments Cortisol Random (test code=CORTR) 19.19 ug/dL 6.200-19.400 Partial Thromboplastin [id number] 05:00:00* Test Item Value Reference Range Comments aPTT (test code=PTT) 31.80 seconds 24.39-37.25 Prothrombin [id number] 05:00:00* Test Item Value Reference Range Comments PT (test code=PT) 11.70 seconds 9.78-13.35 INR (test code=INR) 1.03 Ratio 0.6-1.2 Renal [id number] 04:52:00* Test Item Value Reference Range Comments Sodium (test code=NA) 130 mmol/L 135-145 Potassium (test code=K) 3.9 mmol/L 3.5-5.1 Chloride (test code=CL) 91 mmol/L 98-105 Carbon Dioxide (test code=CO2) 23 mmol/L 22-29 Glucose (test code=GLU) 90 mg/dL 70-115 Blood Urea Nitrogen (test code=BUN) 11 mg/dL 6-20 Creatinine (test code=CREAT) 0.7 mg/dL 0.7-1.2 Calcium (test code=CA) 9.4 mg/dL 8.3-10.5 Albumin (test code=ALB) 4.7 g/dL 3.5-5.2 Phosphorus (test code=PO4) 5.3 mg/dL 2.70-4.50 BUN/Creatinine Ratio (test code=BCRATIO) 15.7 Anion Gap (test code=AGAP) 16 mmol/L 7-16 Estimated GFR (test code=GFR) >60 mL/min/1.73m2 eGFR (estimated Glomerular Filtration Rate) is an estimated value,calculated from the patient's serum creatinine using the MDRD equation.It is NOT the patient's actual GFR. The eGFR provides a more clinicallyuseful measure of kidney disease than serum creatinine alone.This calculation takes sex and race into account, if the informationis provided. If the race is not provided, and the patient isAfrican-Honduran, multiply by 1.212. If sex is not provided, and thepatient is female, multiply by 0.742. Results for patients <18 years ofage have not been validated by the MDRD study and should be interpretedwith caution.eGFR Result Interpretation:eGFR > or=60 is in the Normal RangeeGFR < 60 may mean kidney diseaseeGFR < 15 may mean kidney failureRanges recommended by the National Kidney Foundat ion,http://nkdep.nih.gov [id number] 04:48:00* Test Item Value Reference Range Comments Phosphorus (test code=PO4) 5.1 mg/dL 2.70-4.50 Magnesium, [id number] 04:48:00* Test Item Value Reference Range Comments Magnesium (test code=MG) 2.0 mg/dL 1.7-2.5 CBC with [id number] 04:41:00* Test Item Value Reference Range Comments WBC (test code=WBC) 13.5 K/cumm 4.4-10.5 RBC (test code=RBC) 3.84 M/cumm 4.10-5.70 Hemoglobin (test code=HGB) 11.8 gm/dL 13.4-17.4 Hematocrit (test code=HCT) 34.3 % 38.7-52.0 MCV (test code=MCV) 89.5 fL 80-100 MCH (test code=MCH) 30.8 pg 27.0-32.5 MCHC (test code=MCHC) 34.5 g/dL 32.0-37.5 RDW (test code=RDW) 13.5 % 11.5-14.5 Platelet Count (test code=PLTCT) 541 K/cumm 140-440 MPV (test code=MPV) 6.9 fL Diff Method (test code=DIFFM) Auto Neutrophil (test code=NEUT) 71.8 % 36-70 Lymphocyte (test code=LYMPH) 16.0 % 12-44 Monocyte (test code=MONO) 11.7 % 0-11 Eosinophil (test code=EOS) 0.3 % 0-7 Basophil (test code=BASO) 0.2 % 0-2 Neutro Abs (test code=ANEUT) 9.7 K/cumm 1.6-7.4 Lymph Abs (test code=ALYMPH) 2.1 K/cumm 0.5-4.6 Davis Abs (test code=AMONO) 1.6 K/cumm 0.0-1.2 Eos Abs (test code=AEOS) 0.04 K/cumm 0.00-0.74 Baso Abs (test code=ABASO) 0.0 K/cumm 0.00-0.21 Basic Metabolic [id number] 01:12:00* Test Item Value Reference Range Comments Sodium (test code=NA) 130 mmol/L 135-145 Potassium (test code=K) 3.9 mmol/L 3.5-5.1 Chloride (test code=CL) 91 mmol/L 98-105 Carbon Dioxide (test code=CO2) 25 mmol/L 22-29 Glucose (test code=GLU) 99 mg/dL 70-115 Blood Urea Nitrogen (test code=BUN) 11 mg/dL 6-20 Creatinine (test code=CREAT) 0.8 mg/dL 0.7-1.2 Calcium (test code=CA) 10.0 mg/dL 8.3-10.5 BUN/Creatinine Ratio (test code=BCRATIO) 13.8 Anion Gap (test code=AGAP) 14 mmol/L 7-16 Estimated GFR (test code=GFR) >60 mL/min/1.73m2 eGFR (estimated Glomerular Filtration Rate) is an estimated value,calculated from the patient's serum creatinine using the MDRD equation.It is NOT the patient's actual GFR. The eGFR provides a more clinicallyuseful measure of kidney disease than serum creatinine alone.This calculation takes sex and race into account, if the informationis provided. If the race is not provided, and the patient isAfrican-Honduran, multiply by 1.212. If sex is not provided, and thepatient is female, multiply by 0.742. Results for patients <18 years ofage have not been validated by the MDRD study and should be interpretedwith caution.eGFR Result Interpretation:eGFR > or=60 is in the Normal RangeeGFR < 60 may mean kidney diseaseeGFR < 15 may mean kidney failureRanges recommended by the National Kidney Foundat ion,http://nkdep.nih.gov POC Glucose, [id number] 23:21:00* Test Item Value Reference Range Comments POC Glucose (test code=POCGLUC) 171 mg/dL 70-115 Notify RN or MDIf you consider your patient critically ill, the Sammie Accu-Chek InformII metershould not be used for Glucose determinations.Draw a venous Glucose and send to the Main Lab for Analysis. POC Glucose, [id number] 21:37:00* Test Item Value Reference Range Comments POC Glucose (test code=POCGLUC) 335 mg/dL 70-115 RECEIVED 10UNITS REGIf you consider your patient critically ill, the Asmmie Accu-Chek InformII metershould not be used for Glucose determinations.Draw a venous Glucose and send to the Main Lab for Analysis. Basic Metabolic [id number] 21:27:00* Test Item Value Reference Range Comments Sodium (test code=NA) 121 mmol/L 135-145 Potassium (test code=K) 5.3 mmol/L 3.5-5.1 Chloride (test code=CL) 84 mmol/L 98-105 Carbon Dioxide (test code=CO2) 21 mmol/L 22-29 Glucose (test code=GLU) 473 mg/dL 70-115 VERIFIED BY REPEAT TESTING Blood Urea Nitrogen (test code=BUN) 10 mg/dL 6-20 Creatinine (test code=CREAT) 0.9 mg/dL 0.7-1.2 Calcium (test code=CA) 9.4 mg/dL 8.3-10.5 BUN/Creatinine Ratio (test code=BCRATIO) 11.1 Anion Gap (test code=AGAP) 16 mmol/L 7-16 Estimated GFR (test code=GFR) >60 mL/min/1.73m2 eGFR (estimated Glomerular Filtration Rate) is an estimated value,calculated from the patient's serum creatinine using the MDRD equation.It is NOT the patient's actual GFR. The eGFR provides a more clinicallyuseful measure of kidney disease than serum creatinine alone.This calculation takes sex and race into account, if the informationis provided. If the race is not provided, and the patient isAfrican-Honduran, multiply by 1.212. If sex is not provided, and thepatient is female, multiply by 0.742. Results for patients <18 years ofage have not been validated by the MDRD study and should be interpretedwith caution.eGFR Result Interpretation:eGFR > or=60 is in the Normal RangeeGFR < 60 may mean kidney diseaseeGFR < 15 may mean kidney failureRanges recommended by the National Kidney Foundat ion,http://nkdep.nih.gov POC Glucose, [id number] 20:11:00* Test Item Value Reference Range Comments POC Glucose (test code=POCGLUC) 488 mg/dL 70-115 Notify RN or POC Glucose, [id number] 17:52:00* Test Item Value Reference Range Comments POC Glucose (test code=POCGLUC) 172 mg/dL 70-115 If you consider your patient critically ill, the Sammie Accu-Chek InformII metershould not be used for Glucose determinations.Draw a venous Glucose and send to the Main Lab for Analysis. Basic Metabolic [id number] 16:24:00* Test Item Value Reference Range Comments Sodium (test code=NA) 126 mmol/L 135-145 Potassium (test code=K) 4.4 mmol/L 3.5-5.1 Chloride (test code=CL) 89 mmol/L 98-105 Carbon Dioxide (test code=CO2) 24 mmol/L 22-29 Glucose (test code=GLU) 182 mg/dL 70-115 Blood Urea Nitrogen (test code=BUN) 8 mg/dL 6-20 Creatinine (test code=CREAT) 0.8 mg/dL 0.7-1.2 Calcium (test code=CA) 9.8 mg/dL 8.3-10.5 BUN/Creatinine Ratio (test code=BCRATIO) 10.0 Anion Gap (test code=AGAP) 13 mmol/L 7-16 Estimated GFR (test code=GFR) >60 mL/min/1.73m2 eGFR (estimated Glomerular Filtration Rate) is an estimated value,calculated from the patient's serum creatinine using the MDRD equation.It is NOT the patient's actual GFR. The eGFR provides a more clinicallyuseful measure of kidney disease than serum creatinine alone.This calculation takes sex and race into account, if the informationis provided. If the race is not provided, and the patient isAfrican-Honduran, multiply by 1.212. If sex is not provided, and thepatient is female, multiply by 0.742. Results for patients <18 years ofage have not been validated by the MDRD study and should be interpretedwith caution.eGFR Result Interpretation:eGFR > or=60 is in the Normal RangeeGFR < 60 may mean kidney diseaseeGFR < 15 may mean kidney failureRanges recommended by the National Kidney Foundat ion,http://nkdep.nih.gov POC Glucose, [id number] 12:50:00* Test Item Value Reference Range Comments POC Glucose (test code=POCGLUC) 243 mg/dL 70-115 Notify RN or MDIf you consider your patient critically ill, the Sammie Accu-Chek InformII metershould not be used for Glucose determinations.Draw a venous Glucose and send to the Main Lab for Analysis. Basic Metabolic [id number] 10:23:00* Test Item Value Reference Range Comments Sodium (test code=NA) 117 mmol/L 135-145 Potassium (test code=K) 4.3 mmol/L 3.5-5.1 Chloride (test code=CL) 80 mmol/L 98-105 Carbon Dioxide (test code=CO2) 24 mmol/L 22-29 Glucose (test code=GLU) 292 mg/dL 70-115 Blood Urea Nitrogen (test code=BUN) 8 mg/dL 6-20 Creatinine (test code=CREAT) 0.7 mg/dL 0.7-1.2 Calcium (test code=CA) 8.7 mg/dL 8.3-10.5 BUN/Creatinine Ratio (test code=BCRATIO) 11.4 Anion Gap (test code=AGAP) 13 mmol/L 7-16 Estimated GFR (test code=GFR) >60 mL/min/1.73m2 eGFR (estimated Glomerular Filtration Rate) is an estimated value,calculated from the patient's serum creatinine using the MDRD equation.It is NOT the patient's actual GFR. The eGFR provides a more clinicallyuseful measure of kidney disease than serum creatinine alone.This calculation takes sex and race into account, if the informationis provided. If the race is not provided, and the patient isAfrican-Honduran, multiply by 1.212. If sex is not provided, and thepatient is female, multiply by 0.742. Results for patients <18 years ofage have not been validated by the MDRD study and should be interpretedwith caution.eGFR Result Interpretation:eGFR > or=60 is in the Normal RangeeGFR < 60 may mean kidney diseaseeGFR < 15 may mean kidney failureRanges recommended by the National Kidney Foundat ion,http://nkdep.nih.gov [id number] 10:04:00* Test Item Value Reference Range Comments Osmolality [Serum] (test code=CMOSMOS) 270 mOsm/Kg 270-295 POC Glucose, [id number] 09:36:00* Test Item Value Reference Range Comments POC Glucose (test code=POCGLUC) 303 mg/dL 70-115 If you consider your patient critically ill, the Sammie Accu-Chek InformII metershould not be used for Glucose determinations.Draw a venous Glucose and send to the Main Lab for Analysis. Basic Metabolic [id number] 06:26:00* Test Item Value Reference Range Comments Sodium (test code=NA) 118 mmol/L 135-145 Potassium (test code=K) 4.5 mmol/L 3.5-5.1 Chloride (test code=CL) 81 mmol/L 98-105 Carbon Dioxide (test code=CO2) 23 mmol/L 22-29 Glucose (test code=GLU) 242 mg/dL 70-115 Blood Urea Nitrogen (test code=BUN) 8 mg/dL 6-20 Creatinine (test code=CREAT) 0.7 mg/dL 0.7-1.2 Calcium (test code=CA) 8.9 mg/dL 8.3-10.5 BUN/Creatinine Ratio (test code=BCRATIO) 11.4 Anion Gap (test code=AGAP) 14 mmol/L 7-16 Estimated GFR (test code=GFR) >60 mL/min/1.73m2 eGFR (estimated Glomerular Filtration Rate) is an estimated value,calculated from the patient's serum creatinine using the MDRD equation.It is NOT the patient's actual GFR. The eGFR provides a more clinicallyuseful measure of kidney disease than serum creatinine alone.This calculation takes sex and race into account, if the informationis provided. If the race is not provided, and the patient isAfrican-Honduran, multiply by 1.212. If sex is not provided, and thepatient is female, multiply by 0.742. Results for patients <18 years ofage have not been validated by the MDRD study and should be interpretedwith caution.eGFR Result Interpretation:eGFR > or=60 is in the Normal RangeeGFR < 60 may mean kidney diseaseeGFR < 15 may mean kidney failureRanges recommended by the National Kidney Foundat ion,http://nkdep.nih.gov POC Glucose, [id number] 04:52:00* Test Item Value Reference Range Comments POC Glucose (test code=POCGLUC) 195 mg/dL 70-115 If you consider your patient critically ill, the Sammie Accu-Chek InformII metershould not be used for Glucose determinations.Draw a venous Glucose and send to the Main Lab for Analysis. Thyroid Stimulating Hormone (TSH)2016-06-24 04:09:00* Test Item Value Reference Range Comments TSH (test code=TSH) 3.48 mIU/mL 0.270-4.200 Lipid [id number] 04:02:00* Test Item Value Reference Range Comments Cholesterol (test code=CHOL) 145 mg/dL 0-200 Triglycerides (test code=TRIG) 170 mg/dL 9-200 HDL (test code=HDL) 56 mg/dL 40-60 Chol/HDL (test code=CHOLPHDL) 2.6 Ratio 0.0-5.0 LDL, Calculated (test code=LDLC) 55 0-130 (NOTE)RISK OF HEART DISEASEPublished by [place] Heart AssociationAnalyte Optimal Boderline Increased RiskCHOL <200 200-239 >240TRIG <150 150- 199 >200HDL Male: >60 <40HDL Female: >60 <50LDL <100 130-159 >160LDL NEAR OPTIMAL IS 100-129 VLDL (test code=VLDL) 34 mg/dL 5-40 LDL/HDL (test code=LDLPHDL) 1 Glycosylated [id number] 03:27:00* Test Item Value Reference Range Comments HBA1c (test code=HBA1C) 6.8 % 4.8-5.9 Comprehensive Metabolic [id number] 03:26:00* Test Item Value Reference Range Comments Sodium (test code=NA) 117 mmol/L 135-145 Potassium (test code=K) 4.3 mmol/L 3.5-5.1 Chloride (test code=CL) 79 mmol/L 98-105 Carbon Dioxide (test code=CO2) 22 mmol/L 22-29 Glucose (test code=GLU) 226 mg/dL 70-115 Blood Urea Nitrogen (test code=BUN) 8 mg/dL 6-20 Creatinine (test code=CREAT) 0.7 mg/dL 0.7-1.2 Calcium (test code=CA) 10.1 mg/dL 8.3-10.5 Prot Total (test code=TP) 7.5 g/dL 6.4-8.3 Albumin (test code=ALB) 4.7 g/dL 3.5-5.2 A/G Ratio (test code=AGRATIO) 1.7 Ratio Globulin (test code=GLOB) 2.8 2.9-3.1 Bili Total (test code=TBIL) 1.3 mg/dL 0.1-0.9 Alk Phos (test code=APHOS) 196 U/L 40-129 AST (test code=AST) 22 U/L 1-40 ALT (test code=ALT) 17 U/L 1-41 BUN/Creatinine Ratio (test code=BCRATIO) 11.4 Anion Gap (test code=AGAP) 16 mmol/L 7-16 Estimated GFR (test code=GFR) >60 mL/min/1.73m2 eGFR (estimated Glomerular Filtration Rate) is an estimated value,calculated from the patient's serum creatinine using the MDRD equation.It is NOT the patient's actual GFR. The eGFR provides a more clinicallyuseful measure of kidney disease than serum creatinine alone.This calculation takes sex and race into account, if the informationis provided. If the race is not provided, and the patient isAfrican-Honduran, multiply by 1.212. If sex is not provided, and thepatient is female, multiply by 0.742. Results for patients <18 years ofage have not been validated by the MDRD study and should be interpretedwith caution.eGFR Result Interpretation:eGFR > or=60 is in the Normal RangeeGFR < 60 may mean kidney diseaseeGFR < 15 may mean kidney failureRanges recommended by the National Kidney Foundat ion,http://nkdep.nih.gov Magnesium, [id number] 03:21:00* Test Item Value Reference Range Comments Magnesium (test code=MG) 1.7 mg/dL 1.7-2.5 [id number] 03:21:00* Test Item Value Reference Range Comments Phosphorus (test code=PO4) 4.1 mg/dL 2.70-4.50 TIBC and [id number] 03:21:00* Test Item Value Reference Range Comments Iron (test code=FE) 66 ug/dL 59-158 UIBC (test code=UIBC) 305 ug/dL 112-346 TIBC (test code=TIBC) 371 ug/dL 171-504 % Saturation (test code=PSAT) 18 % 20-50 Partial Thromboplastin [id number] 03:17:00* Test Item Value Reference Range Comments aPTT (test code=PTT) 31.20 seconds 24.39-37.25 Prothrombin [id number] 03:17:00* Test Item Value Reference Range Comments PT (test code=PT) 11.40 seconds 9.78-13.35 INR (test code=INR) 1.00 Ratio 0.6-1.2 CBC with [id number] 03:16:00* Test Item Value Reference Range Comments WBC (test code=WBC) 11.6 K/cumm 4.4-10.5 RBC (test code=RBC) 4.00 M/cumm 4.10-5.70 Hemoglobin (test code=HGB) 12.0 gm/dL 13.4-17.4 Hematocrit (test code=HCT) 35.0 % 38.7-52.0 MCV (test code=MCV) 87.6 fL 80-100 MCH (test code=MCH) 30.1 pg 27.0-32.5 MCHC (test code=MCHC) 34.3 g/dL 32.0-37.5 RDW (test code=RDW) 13.3 % 11.5-14.5 Platelet Count (test code=PLTCT) 476 K/cumm 140-440 MPV (test code=MPV) 6.7 fL Diff Method (test code=DIFFM) Auto Neutrophil (test code=NEUT) 63.1 % 36-70 Lymphocyte (test code=LYMPH) 24.9 % 12-44 Monocyte (test code=MONO) 11.1 % 0-11 Eosinophil (test code=EOS) 0.5 % 0-7 Basophil (test code=BASO) 0.4 % 0-2 Neutro Abs (test code=ANEUT) 7.3 K/cumm 1.6-7.4 Lymph Abs (test code=ALYMPH) 2.9 K/cumm 0.5-4.6 Davis Abs (test code=AMONO) 1.3 K/cumm 0.0-1.2 Eos Abs (test code=AEOS) 0.05 K/cumm 0.00-0.74 Baso Abs (test code=ABASO) 0.0 K/cumm 0.00-0.21 Basic Metabolic [id number] 02:08:00* Test Item Value Reference Range Comments Sodium (test code=NA) 136 mmol/L 135-145 Potassium (test code=K) 3.4 mmol/L 3.5-5.1 Chloride (test code=CL) 99 mmol/L 98-105 Carbon Dioxide (test code=CO2) 24 mmol/L 22-29 Glucose (test code=GLU) 194 mg/dL 70-115 Blood Urea Nitrogen (test code=BUN) 8 mg/dL 6-20 Creatinine (test code=CREAT) 0.6 mg/dL 0.7-1.2 Calcium (test code=CA) 8.0 mg/dL 8.3-10.5 BUN/Creatinine Ratio (test code=BCRATIO) 13.3 Anion Gap (test code=AGAP) 13 mmol/L 7-16 Estimated GFR (test code=GFR) >60 mL/min/1.73m2 eGFR (estimated Glomerular Filtration Rate) is an estimated value,calculated from the patient's serum creatinine using the MDRD equation.It is NOT the patient's actual GFR. The eGFR provides a more clinicallyuseful measure of kidney disease than serum creatinine alone.This calculation takes sex and race into account, if the informationis provided. If the race is not provided, and the patient isAfrican-Honduran, multiply by 1.212. If sex is not provided, and thepatient is female, multiply by 0.742. Results for patients <18 years ofage have not been validated by the MDRD study and should be interpretedwith caution.eGFR Result Interpretation:eGFR > or=60 is in the Normal RangeeGFR < 60 may mean kidney diseaseeGFR < 15 may mean kidney failureRanges recommended by the National Kidney Foundat ion,http://nkdep.nih.gov Basic Metabolic [id number] 22:33:00* Test Item Value Reference Range Comments Sodium (test code=NA) 114 mmol/L 135-145 VERIFIED BY REPEAT TESTINGREAD BACK LAB VALUESTRAN RN 22:32 06/23/2016 OG Potassium (test code=K) 4.7 mmol/L 3.5-5.1 Hemolyzed Chloride (test code=CL) 77 mmol/L 98-105 Carbon Dioxide (test code=CO2) 24 mmol/L 22-29 Glucose (test code=GLU) 169 mg/dL 70-115 Blood Urea Nitrogen (test code=BUN) 8 mg/dL 6-20 Creatinine (test code=CREAT) 0.6 mg/dL 0.7-1.2 Calcium (test code=CA) 9.6 mg/dL 8.3-10.5 BUN/Creatinine Ratio (test code=BCRATIO) 13.3 Anion Gap (test code=AGAP) 13 mmol/L 7-16 Estimated GFR (test code=GFR) >60 mL/min/1.73m2 eGFR (estimated Glomerular Filtration Rate) is an estimated value,calculated from the patient's serum creatinine using the MDRD equation.It is NOT the patient's actual GFR. The eGFR provides a more clinicallyuseful measure of kidney disease than serum creatinine alone.This calculation takes sex and race into account, if the informationis provided. If the race is not provided, and the patient isAfrican-Honduran, multiply by 1.212. If sex is not provided, and thepatient is female, multiply by 0.742. Results for patients <18 years ofage have not been validated by the MDRD study and should be interpretedwith caution.eGFR Result Interpretation:eGFR > or=60 is in the Normal RangeeGFR < 60 may mean kidney diseaseeGFR < 15 may mean kidney failureRanges recommended by the National Kidney Foundat ion,http://nkdep.nih.gov POC Glucose, [id number] 21:48:00* Test Item Value Reference Range Comments POC Glucose (test code=POCGLUC) 164 mg/dL 70-115 If you consider your patient critically ill, the Sammie Accu-Chek InformII metershould not be used for Glucose determinations.Draw a venous Glucose and send to the Main Lab for Analysis. Basic Metabolic [id number] 19:56:00* Test Item Value Reference Range Comments Sodium (test code=NA) 114 mmol/L 135-145 VERIFIED BY REPEAT TESTINGREAD BACK LAB VALUESTRAN RN 19:55 06/23/2016 OG Potassium (test code=K) 4.4 mmol/L 3.5-5.1 Chloride (test code=CL) 76 mmol/L 98-105 Carbon Dioxide (test code=CO2) 20 mmol/L 22-29 Glucose (test code=GLU) 229 mg/dL 70-115 Blood Urea Nitrogen (test code=BUN) 6 mg/dL 6-20 Creatinine (test code=CREAT) 0.6 mg/dL 0.7-1.2 Calcium (test code=CA) 9.9 mg/dL 8.3-10.5 BUN/Creatinine Ratio (test code=BCRATIO) 10.0 Anion Gap (test code=AGAP) 18 mmol/L 7-16 Estimated GFR (test code=GFR) >60 mL/min/1.73m2 eGFR (estimated Glomerular Filtration Rate) is an estimated value,calculated from the patient's serum creatinine using the MDRD equation.It is NOT the patient's actual GFR. The eGFR provides a more clinicallyuseful measure of kidney disease than serum creatinine alone.This calculation takes sex and race into account, if the informationis provided. If the race is not provided, and the patient isAfrican-Honduran, multiply by 1.212. If sex is not provided, and thepatient is female, multiply by 0.742. Results for patients <18 years ofage have not been validated by the MDRD study and should be interpretedwith caution.eGFR Result Interpretation:eGFR > or=60 is in the Normal RangeeGFR < 60 may mean kidney diseaseeGFR < 15 may mean kidney failureRanges recommended by the National Kidney Foundat ion,http://nkdep.nih.gov Osmolality, Urine [id number] 19:21:00* Test Item Value Reference Range Comments Osmolality, Urine (test code=OSMOURRM) 236 mOsm/Kg 38-1400 Potassium, Urine [id number] 19:08:00* Test Item Value Reference Range Comments K, Urine (test code=KURRM) 13 mmol/L No Reference Ranges available for body fluid Sodium, Urine [id number] 19:08:00* Test Item Value Reference Range Comments Sodium, Urine (test code=NAURRM) 65 mmol/L No Reference Ranges available for body fluid Prothrombin [id number] 19:03:00* Test Item Value Reference Range Comments PT (test code=PT) 11.10 seconds 9.78-13.35 INR (test code=INR) 0.97 Ratio 0.6-1.2 Partial Thromboplastin [id number] 19:02:00* Test Item Value Reference Range Comments aPTT (test code=PTT) 31.90 seconds 24.39-37.25 CBC with Fulglgoqiwss0545-14-21 18:54:00* Test Item Value Reference Range Comments WBC (test code=WBC) 12.3 K/cumm 4.4-10.5 RBC (test code=RBC) 3.75 M/cumm 4.10-5.70 Hemoglobin (test code=HGB) 11.4 gm/dL 13.4-17.4 Hematocrit (test code=HCT) 32.9 % 38.7-52.0 MCV (test code=MCV) 87.8 fL 80-100 MCH (test code=MCH) 30.5 pg 27.0-32.5 MCHC (test code=MCHC) 34.7 g/dL 32.0-37.5 RDW (test code=RDW) 13.3 % 11.5-14.5 Platelet Count (test code=PLTCT) 445 K/cumm 140-440 MPV (test code=MPV) 7.1 fL Diff Method (test code=DIFFM) Auto Neutrophil (test code=NEUT) 67.3 % 36-70 Lymphocyte (test code=LYMPH) 20.2 % 12-44 Monocyte (test code=MONO) 11.8 % 0-11 Eosinophil (test code=EOS) 0.6 % 0-7 Basophil (test code=BASO) 0.2 % 0-2 Neutro Abs (test code=ANEUT) 8.3 K/cumm 1.6-7.4 Lymph Abs (test code=ALYMPH) 2.5 K/cumm 0.5-4.6 Davis Abs (test code=AMONO) 1.4 K/cumm 0.0-1.2 Eos Abs (test code=AEOS) 0.07 K/cumm 0.00-0.74 Baso Abs (test code=ABASO) 0.0 K/cumm 0.00-0.21 POC Glucose, [id number] 18:11:00* Test Item Value Reference Range Comments POC Glucose (test code=POCGLUC) 262 mg/dL 70-115 If you consider your patient critically ill, the Sammie Accu-Chek InformII metershould not be used for Glucose determinations.Draw a venous Glucose and send to the Main Lab for Analysis. Basic Metabolic [id number] 12:45:00* Test Item Value Reference Range Comments Sodium (test code=NA) 112 mmol/L 135-145 Potassium (test code=K) 4.3 mmol/L 3.5-5.1 Chloride (test code=CL) 74 mmol/L 98-105 Carbon Dioxide (test code=CO2) 25 mmol/L 22-29 Glucose (test code=GLU) 213 mg/dL 70-115 Blood Urea Nitrogen (test code=BUN) 5 mg/dL 6-20 Creatinine (test code=CREAT) 0.6 mg/dL 0.7-1.2 Calcium (test code=CA) 9.1 mg/dL 8.3-10.5 BUN/Creatinine Ratio (test code=BCRATIO) 8.3 Anion Gap (test code=AGAP) 13 mmol/L 7-16 Estimated GFR (test code=GFR) >60 mL/min/1.73m2 eGFR (estimated Glomerular Filtration Rate) is an estimated value,calculated from the patient's serum creatinine using the MDRD equation.It is NOT the patient's actual GFR. The eGFR provides a more clinicallyuseful measure of kidney disease than serum creatinine alone.This calculation takes sex and race into account, if the informationis provided. If the race is not provided, and the patient isAfrican-H[place], multiply by 1.212. If sex is not provided, and thepatient is female, multiply by 0.742. Results for patients <18 years ofage have not been validated by the MDRD study and should be interpretedwith caution.eGFR Result Interpretation:eGFR > or=60 is in the Normal RangeeGFR < 60 may mean kidney diseaseeGFR < 15 may mean kidney failureRanges recommended by the National Kidney Foundat ion,http://nkdep.nih.gov Urinalysis [id number] 08:19:00* Test Item Value Reference Range Comments Color (test code=COLOR) Yellow Yellow,Straw,Pl yellow Clarity (test code=CLAR) Clear Clear Specific [place] (test code=SPGR) 1.011 1.001-1.035 pH (test code=PH) 7.0 5.0-9.0 Ketone (test code=KET) Negative mg/dL Negative Glucose (test code=GLUCUR) 1000 mg/dL Negative Protein (test code=PROT) Negative mg/dL Negative Bilirubin (test code=BILI) Negative mg/dL Negative Occult Blood (test code=UDOB) Negative Negative Urobilinogen (test code=UROB) 0.2 mg/dL 0.2-1.0 Nitrite (test code=NIT) Negative Negative Leuk Esterase (test code=LEUK) Negative Negative Micros Exam (test code=MEXAM) Indicated Epithelial Cells (test code=EPI) 0-2 /LPF 0-30 WBC, Urine (test code=UWBC) None seen /HPF 0-5 RBC, Urine (test code=URBC) 0-3 /HPF 0-5 Bacteria (test code=BACT) None /HPF CK [id number] 07:56:00* Test Item Value Reference Range Comments CK (test code=CK) 233 U/L 39-308 CK [id number] 07:56:00* Test Item Value Reference Range Comments CK (test code=CK) 233 U/L 39-308 CKMB (test code=CKMB) 3.1 ng/mL 0.0-4.9 CKMB% (test code=CKMBP) 1.3 % 0.0-3.4 Troponin [id number] 07:55:00* Test Item Value Reference Range Comments Troponin T (test code=BEN) <0.010 ng/mL 0.000-0.090 Zsv-[id number] 07:55:00* Test Item Value Reference Range Comments NT ProBnp (test code=PBNP) 208 pg/mL 0-124 Comprehensive Metabolic [id number] 06:42:00* Test Item Value Reference Range Comments Sodium (test code=NA) 112 mmol/L 135-145 READ BACK LAB VALUESVERIFIED BY REPEAT TESTINGEdwinRex @642am 06/23/2016 kms Potassium (test code=K) 4.5 mmol/L 3.5-5.1 Chloride (test code=CL) 74 mmol/L 98-105 Carbon Dioxide (test code=CO2) 26 mmol/L 22-29 Glucose (test code=GLU) 236 mg/dL 70-115 Blood Urea Nitrogen (test code=BUN) 6 mg/dL 6-20 Creatinine (test code=CREAT) 0.7 mg/dL 0.7-1.2 Calcium (test code=CA) 9.8 mg/dL 8.3-10.5 Prot Total (test code=TP) 7.1 g/dL 6.4-8.3 Albumin (test code=ALB) 4.6 g/dL 3.5-5.2 A/G Ratio (test code=AGRATIO) 1.8 Ratio Globulin (test code=GLOB) 2.5 2.9-3.1 Bili Total (test code=TBIL) 0.9 mg/dL 0.1-0.9 Alk Phos (test code=APHOS) 171 U/L 40-129 AST (test code=AST) 20 U/L 1-40 ALT (test code=ALT) 15 U/L 1-41 BUN/Creatinine Ratio (test code=BCRATIO) 8.6 Anion Gap (test code=AGAP) 12 mmol/L 7-16 Estimated GFR (test code=GFR) >60 mL/min/1.73m2 eGFR (estimated Glomerular Filtration Rate) is an estimated value,calculated from the patient's serum creatinine using the MDRD equation.It is NOT the patient's actual GFR. The eGFR provides a more clinicallyuseful measure of kidney disease than serum creatinine alone.This calculation takes sex and race into account, if the informationis provided. If the race is not provided, and the patient isAfrican-[place], multiply by 1.212. If sex is not provided, and thepatient is female, multiply by 0.742. Results for patients <18 years ofage have not been validated by the MDRD study and should be interpretedwith caution.eGFR Result Interpretation:eGFR > or=60 is in the Normal RangeeGFR < 60 may mean kidney diseaseeGFR < 15 may mean kidney failureRanges recommended by the National Kidney Foundat ion,http://nkdep.nih.gov [id number] 06:10:00* Test Item Value Reference Range Comments Amphetamine (test code=AMPH) Negative Negative For diagnostic purposes only, positive results should always be assessedin conjunctionwith the patient's medical history,clinical examination and otherfindings.To fulfill legal requirements, a more specific alternate chemical methodmust be used inorder to obtain a Confirmed analytical result. GC/MS is the preferred confirmatory method. Barbiturates (test code=RADHA) Negative Negative Benzodiazepine (test code=GERALDO) Negative Negative Cocaine (test code=COCA) Negative Negative Methadone (test code=MTHD) Negative Negative Opiates (test code=OPIA) POSITIVE Negative PCP (test code=PCP) Negative Negative Propoxyphene (test code=PROPOX) Negative Negative THC (test code=THC) Negative Negative Alcohol, Urine (test code=ETOHU) <0.01 g/dL 0.00-0.01 CBC with [id number] 06:04:00* Test Item Value Reference Range Comments WBC (test code=WBC) 11.5 K/cumm 4.4-10.5 RBC (test code=RBC) 3.45 M/cumm 4.10-5.70 Hemoglobin (test code=HGB) 10.8 gm/dL 13.4-17.4 Hematocrit (test code=HCT) 30.2 % 38.7-52.0 MCV (test code=MCV) 87.6 fL 80-100 MCH (test code=MCH) 31.3 pg 27.0-32.5 MCHC (test code=MCHC) 35.7 g/dL 32.0-37.5 RDW (test code=RDW) 13.3 % 11.5-14.5 Platelet Count (test code=PLTCT) 417 K/cumm 140-440 MPV (test code=MPV) 6.8 fL Diff Method (test code=DIFFM) Auto Neutrophil (test code=NEUT) 69.9 % 36-70 Lymphocyte (test code=LYMPH) 17.3 % 12-44 Monocyte (test code=MONO) 12.3 % 0-11 Eosinophil (test code=EOS) 0.2 % 0-7 Basophil (test code=BASO) 0.3 % 0-2 Neutro Abs (test code=ANEUT) 8.1 K/cumm 1.6-7.4 Lymph Abs (test code=ALYMPH) 2.0 K/cumm 0.5-4.6 Davis Abs (test code=AMONO) 1.4 K/cumm 0.0-1.2 Eos Abs (test code=AEOS) 0.03 K/cumm 0.00-0.74 Baso Abs (test code=ABASO) 0.0 K/cumm 0.00-0.21 COMPREHENSIVE METABOLIC [id number] 04:26:00* Test Item Value Reference Range Comments TOTAL PROTEIN (BEAKER) (test mezk=779) 7.6 gm/dL 6.0-8.5 ALBUMIN (BEAKER) (test oyys=8782) 4.6 g/dL 3.5-5.0 ALKALINE PHOSPHATASE (BEAKER) (test rnsq=416) 107 U/L 30-115 BILIRUBIN TOTAL (BEAKER) (test zjkq=001) 0.7 mg/dL 0.1-1.2 SODIUM (BEAKER) (test ebqw=214) 131 meq/L 135-148 POTASSIUM (BEAKER) (test kbtl=946) 4.0 meq/L 3.6-5.5 CHLORIDE (BEAKER) (test csnl=430) 91 meq/L 98-106 CO2 (BEAKER) (test ghcu=514) 29 meq/L 24-32 BLOOD UREA NITROGEN (BEAKER) (test ktpa=122) 7 mg/dL 10-26 CREATININE (BEAKER) (test ezpj=558) 0.68 mg/dL 0.50-1.20 GLUCOSE RANDOM (BEAKER) (test wduv=912) 110 mg/dL 70-110 CALCIUM (BEAKER) (test tjcc=428) 9.0 mg/dL 8.5-10.5 AST (SGOT) (BEAKER) (test jwnw=235) 40 U/L 5-40 ALT (SGPT) (BEAKER) (test ehal=059) 29 U/L 5-50 EGFR (BEAKER) (test ivut=0190) 123 mL/min/1.73 sq m ESTIMATED GFR IS NOT ACCURATE CREATININE CLEARANCE IN PREDICTING GLOMERULAR FILTRATION RATE. ESTIMATED GFR IS NOT APPLICABLE FOR DIALYSIS PATIENTS. CBC W/PLT COUNT & AUTO [id number] 04:00:00* Test Item Value Reference Range Comments WHITE BLOOD CELL COUNT (BEAKER) (test jzsk=949) 7.8 10e3/ L 4.0-10.0 RED BLOOD CELL COUNT (BEAKER) (test wycy=287) 4.50 10e6/ L 4.20-5.80 HEMOGLOBIN (BEAKER) (test yhyv=445) 14.2 g/dL 13.0-16.8 HEMATOCRIT (BEAKER) (test yrfs=987) 41.1 % 40.0-50.0 MEAN CORPUSCULAR VOLUME (BEAKER) (test nlgg=788) 91.3 fL 82.0-98.0 MEAN CORPUSCULAR HEMOGLOBIN (BEAKER) (test tvck=535) 31.5 pg 27.0-33.0 MEAN CORPUSCULAR HEMOGLOBIN CONC (BEAKER) (test bgfe=782) 34.5 g/dL 32.0-36.0 RED CELL DISTRIBUTION WIDTH (BEAKER) (test esrg=997) 11.5 % 10.3-14.2 PLATELET COUNT (BEAKER) (test adio=204) 358 10e3/ L 150-430 MEAN PLATELET VOLUME (BEAKER) (test heur=869) 6.0 fL 6.5-10.5 NEUTROPHILS RELATIVE PERCENT (BEAKER) (test sswv=255) 57 % LYMPHOCYTES RELATIVE PERCENT (BEAKER) (test ygzt=901) 35 % MONOCYTES RELATIVE PERCENT (BEAKER) (test ndlx=795) 7 % EOSINOPHILS RELATIVE PERCENT (BEAKER) (test mvke=334) 1 % BASOPHILS RELATIVE PERCENT (BEAKER) (test gewd=222) 1 % NEUTROPHILS ABSOLUTE COUNT (BEAKER) (test bynf=730) 4.43 10e3/ L 1.80-8.00 LYMPHOCYTES ABSOLUTE COUNT (BEAKER) (test cjwc=912) 2.69 10e3/ L 1.48-4.50 MONOCYTES ABSOLUTE COUNT (BEAKER) (test cize=123) 0.57 10e3/ L 0.00-1.30 EOSINOPHILS ABSOLUTE COUNT (BEAKER) (test jorz=752) 0.06 10e3/ L 0.00-0.50 BASOPHILS ABSOLUTE COUNT (BEAKER) (test hspj=439) 0.05 10e3/ L 0.00-0.20
--- NOTE | 2018-02-01 10:28 | Operative Report ---
DATE OF PROCEDURE: February 01, 2018 PROCEDURE INDICATIONS: Unstable angina. PROCEDURES PERFORMED 1. Left heart catheterization. 2. Selective coronary angiography. 3. Right radial TR band hemostasis. PROCEDURE COMPLICATIONS: None. ESTIMATED BLOOD LOSS: Less than 5 mL. PROCEDURE SUMMARY: After consent was obtained, the patient was prepped and draped in a sterile fashion. The right radial site was locally infiltrated with 2% lidocaine. Access was obtained with a single arterial stick, and a 5-[place] outer diameter Slender sheath was advanced. A TIG catheter was used as a universal catheter for engagement of the left main and then the right coronary artery with angiography performed to each of the selective vessels in multiple views. A pigtail catheter was then used to cross the aortic valve for hemodynamic measurements and left ventriculogram. The following findings were noted: 1. The LV pressure was 98/-3 with an end-diastolic pressure of 3. 2. Aortic pressure was 98/61. Of note, IV bolus of additional 500 normal saline was provided after this measurement with additional 150 mL an hour drip post procedure. 3. LV-gram reveals preserved left ventricular systolic function, normal regional wall motion, and left ventricular ejection fraction of 60% to 65%. 4. Left main large in caliber with luminal irregularities. It gives an LAD and circumflex. 5. The LAD has luminal irregularities throughout. It gives a couple of diagonals and multiple short and small septal perforators. 6. The circumflex is dominant with luminal irregularities. It gives 4 small and short obtuse marginals and a terminal medium-caliber LPLV and an LPDA. 7. The right coronary artery is nondominant and with luminal irregularities, and it gives 2 RV marginals. CONCLUSIONS 1. No evidence of obstructive coronary artery disease. 2. Preserved left ventricular systolic function. RECOMMENDATIONS: Medical therapy. Wean TR band. Job#: [id number]
== END | disposition home or self-care (01) ==
LOC: CATH LAB 05:37
PROVIDERS: ATTEND Internal Medicine Cardiovascular Disease
DX: I20.0 Unstable angina (principal); I10 Essential (primary) hypertension; E78.5 Hyperlipidemia, unspecified; E11.9 Type 2 diabetes mellitus without complications; Z79.4 Long term (current) use of insulin; E03.9 Hypothyroidism, unspecified; Z01.812 Encounter for preprocedural laboratory examination; Z79.82 Long term (current) use of aspirin; Z87.891 Personal history of nicotine dependence
CPT/HCPCS: 36415 ×2; 80053; 80061; 82948; 85025; 93458; C1887; J1644; J2001; J2250; J7030; Q9967

== ENCOUNTER → 2024-07-17 | Day surgery (SDC) | payer OTHER ==
[~2024-07-17] MED LIST changes: +GLUCAGON FOR INJ 1 MG VIAL ONE; -HEPARIN SOD (PORCINE) 1000 UNIT/ML 30ML ONE; -HEPARIN SOD/SOD CHLORIDE 2,000 ML ONE; +HYOSCYAMINE SULFATE 0.5 MG/ML INJ ONE; -IOPAMIDOL 370 MG/ML 200 ML INFUS..BTL INJ ONE; +LANTUS 3ML100 UNITS/ SC; -LEVOTHYROXINE25 MCG PEG; +LEVOTHYROXINE25 MCG PO; -LIDOCAINE HCL 2% LOCAL 20 ML VIAL ONE; +LIDOCAINE HCL 2% LOCAL INJ 5 ML SDV VIAL INJ ONE; -MIDAZOLAM HCL 2 MG/2 ML VIAL ONE; -NITROGLYCERIN/D5W 200 MCG/ML 250 ML ONE; +ONDANSETRON HCL INJ 2MG/ML 2ML 2 MG/ML VIAL ONE; +PROPOFOL IV EMULSION 50 ML IV ONE; -SODIUM CHLORIDE 0.9% 1000ML 1,000 ML ONE; -VERAPAMIL HCL 2.5 MG/ML 2 ML VIAL ONE
[2024-07-17] MEDS: LACTATED RINGER'S 1,000 ML ONE (09:31)
[2024-07-17] MEDS: INSULIN REGULAR, HUMAN 100 UNIT/1 ML ONE (09:46)
[2024-07-17 16:45] VITALS: BP 118/83; PULSE 83; RESP 17; TEMP 97.1; O2SAT 96
== END | disposition home or self-care (01) ==
LOC: OR 07:59
PROVIDERS: ATTEND Internal Medicine Gastroenterology
DX: Z09 Encounter for follow-up examination after completed treatment for conditions other than malignant neoplasm (principal); D12.3 Benign neoplasm of transverse colon; D12.5 Benign neoplasm of sigmoid colon; K63.89 Other specified diseases of intestine; K59.00 Constipation, unspecified; K64.8 Other hemorrhoids; K29.50 Unspecified chronic gastritis without bleeding; K21.9 Gastro-esophageal reflux disease without esophagitis; I10 Essential (primary) hypertension; Z71.89 Other specified counseling; E10.9 Type 1 diabetes mellitus without complications; E03.9 Hypothyroidism, unspecified; F17.210 Nicotine dependence, cigarettes, uncomplicated; Z71.6 Tobacco abuse counseling; Z79.4 Long term (current) use of insulin; Z79.82 Long term (current) use of aspirin; Z79.899 Other long term (current) drug therapy
CPT/HCPCS: 36415; 45380; 45385; 82948; 93005; J1610; J1980; J2003; J2405; J2704; J3010; J7121